=== PATIENT | female | born 2000 | race Caucasian/White ===

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

== ENCOUNTER 2019-02-14 00:53 | Emergency (ER) | payer OTHER ==
[2019-02-14 01:06] VITALS: BP 111/70; PULSE 90; RESP 16; TEMP 98.7
--- NOTE | 2019-02-14 01:11 | ED ---
Back Pain HPI - General Chief Complaint: Back Pain/Injury Stated Complaint: Back Pain (1month) Time Seen by Provider: 02/14/19 01:11 Source: patient Limitations: no limitations - History of Present Illness Initial Comments: Lexus is a pleasant her old female presents to the emergency department this morning after ending her shift at [employer]. Patient reports that over the p ast month she's had worsening pain in her lower back. Patient reports that the pain is an aching in her bilateral lower back and hips. Patient reports the pain worsens throughout her shift as she is on her feet for 6-8 hours at a time. Patient also reports that she had frequently has to lift boxes at work however she's been trained inappropriate lifting technique and does her best to maintain good posture with lifting. Patient reports that she's been experiencing this pain intermittently for approximately month but it seems to be happening more frequently. She reports that she is intermittently taken some ibuprofen with minimal response. Patient states that today her back was hurting during her shift so she decided to the ER for further evaluation. Patient denies any weakness in the lower extremities any gait instability she denies any numbness or tingling in the legs or in the saddle region, she denies any bowel or bladder continence she denies any constipation or urinary retention she denies any fevers chills nausea vomiting she denies any IV drug use. Patient has no known trauma to the back she has no history of surgeries or interventions of the back. - Related Data Previous Rx's Medication Instructions Recorded Ibuprofen [Motrin] 800 mg PO TID #30 tab 02/14/19 Lidocaine 5% Patch [Lidoderm] 1 patch TOPICAL DAILY #30 patch 02/14/19 Allergies Allergy/AdvReac Type Severity Reaction Status Date / Time No Known Allergies Allergy Verified 02/14/19 01:06 Review of Systems ROS Statement: Those systems with pertinent positive or pertinent negative responses have been documented in the HPI. ROS Other: All systems not noted in ROS Statement are negative. Past Medical History Past Medical History: No Reported History History of Any Multi-Drug Resistant Organisms: None Reported Past Surgical History: Orthopedic Surgery Additional Past Surgical History / Comment(s): LEFT ARM Past Psychological History: No Psychological Hx Reported Smoking Status: Never smoker Past Alcohol Use History: None Reported Past Drug Use History: None Reported General Exam - General Exam Comments Initial Comments: Physical Exam GENERAL: Pleasant morbidly obese female in no acute distress HENT: Normocephalic, Atraumatic. EYES: PERRL, EOMI PULMONARY: Unlabored respirations. No audible rales rhonchi or wheezing was noted. CARDIOVASCULAR: There is a regular rate and rhythm without any murmurs gallops or rubs. ABDOMEN: Soft and nontender with normal bowel sounds. SKIN: Skin is clear with no lesions or rashes and otherwise unremarkable. : Deferred NEUROLOGIC: Patient is alert and oriented x3. Moving all extremities spontaneously MUSCULOSKELETAL: Normal extremities with adequate strength and full range of motion. No lower extremity swelling or edema. No calf tenderness. No tenderness to percussion of the midline spine PSYCHIATRIC: Normal psychiatric evaluation. Limitations: no limitations Limitations: no limitations Course Vital Signs 02/14/19 01:02 Temperature 98.7 F Pulse Rate 90 Respiratory 16 Rate Blood Pressure 111/70 O2 Sat by Pulse 100 Oximetry Medical Decision Making - Medical Decision Making The patient was seen and evaluated history is obtained from the patient This is a pleasant morbidly obese 18-year-old female with low back pain which worsens with standing throughout her 6-8 hour shifts at work. Patient with no red flag symptoms at this time I don't feel there is any indication for lab work or imaging next line patient has tried to take ibuprofen intermittently over the past month but has not been on any consistent regimen Patient does admit that she was very cheap croc shoes to work, we did discuss the importance of good supportive footwear for her low back in addition we discussed supportive care including physical therapy, coarse strengthening exercises and weight loss. She was treated with Toradol in the Lidoderm patch she'll be discharged home with Lidoderm and Motrin and referred back to her primary care physician for further discussion of management of chronic low back pain. Disposition Clinical Impression: Mechanical back pain Disposition: HOME SELF-CARE Condition: Stable Instructions (If sedation given, give patient instructions): Acute Low Back Pain (ED), Chronic Back Pain (ED) Additional Instructions: HOME CARE INSTRUCTIONS: For many people, back pain returns. Since low back pain is rarely dangerous, it is often a condition that people can learn to manage on their own. Please remain active. It is stressful on the back to sit or setter automatic spinning lathe one place. Do not sit, drive, or setter automatic spinning lathe one place for more than 30 minutes at a time. Take short walks on level surfaces as soon as pain allows. Try to increase the length of time you walk each day. Do not stay in bed. Resting more than 1 or 2 days can delay your recovery. Do not avoid exercise or work. Your body is made to move. It is not dangerous to be active, even though your back may hurt. Your back will likely heal faster if you return to being active before your pain is gone. Only take oiul-cjy-dzixeab or prescription medicines as directed by your caregiver. Wkic-jwj-vczcshc medicines to reduce pain and inflammation are often the most helpful. Your caregiver may prescribe muscle relaxant drugs. These medicines help dull your pain so you can more quickly return to your normal activities and healthy exercise. Please avoid driving, operating heavy machinery or making important decisions while on this drug - it can cloud your judgment. Avoid feeling anxious or stressed. Stress increases muscle tension and can worsen back pain. It is important to recognize when you are anxious or stressed and learn ways to manage it. Exercise is a great option. SEEK MEDICAL CARE IF: You have pain that is not relieved with rest or medicine. You have pain that does not improve in 1 week. You have new symptoms. You are generally not feeling well. SEEK IMMEDIATE MEDICAL CARE IF: You have pain that radiates from your back into your legs. You develop new bowel or bladder control problems. You have unusual weakness or numbness in your arms or legs. You develop nausea or vomiting. You develop abdominal pain. You feel faint. Prescriptions: Lidocaine 5% Patch [Lidoderm] 1 patch TOPICAL DAILY #30 patch Ibuprofen [Motrin] 800 mg PO TID #30 tab Is patient prescribed a controlled substance at d/c from ED?: No Referrals: Joya Motley III, MD [Primary Care Provider] - 1-2 days
[2019-02-14] MEDS ORDERED: KETOROLAC 30 MG/ML 1 ML VIAL IM STA (01:26)
[2019-02-14] MEDS ORDERED: LIDOCAINE 5% PATCH TOPICAL SCH (09:00)
== END 2019-02-14 01:57 | disposition home or self-care (01) ==
LOC: EC 00:53
DX: M54.5 Low back pain (principal); E66.01 Morbid (severe) obesity due to excess calories; Z68.51 Body mass index [BMI] pediatric, less than 5th percentile for age
CPT/HCPCS: 99283; 96372; J1885

== ENCOUNTER 2019-04-09 11:33 | Emergency (ER) | payer OTHER ==
[2019-04-09 11:57] VITALS: BP 121/84; PULSE 86; RESP 18; TEMP 98.5
[2019-04-09] MEDS ORDERED: AMOXIC-POT CLAV 875MG STARTER 2 EACH TABLET PO STA (12:28)
[2019-04-09] MEDS ORDERED: ACET/COD 300 MG/30 MG STARTER PACK 6 TAB BTL PO STA (12:28)
--- NOTE | 2019-04-09 12:30 | ED ---
ENT HPI - General Chief complaint: Dental/Oral Stated complaint: post dental surgery swelling Time Seen by Provider: 04/09/19 11:59 Source: patient, RN notes reviewed, old records reviewed Mode of arrival: ambulatory Limitations: no limitations - History of Present Illness Initial comments: Pt is a 18 year old femael with Right lower dental pain and swelling. Patient had wisdom teeth removed 1 month ago, and is concerned for abscess. She reports swelling and pain for 2 days. She denies fever, trisums, cough, difficulty swallowing. - Related Data Previous Rx's Medication Instructions Recorded Amoxic-Pot Clav 875-125Mg 1 tab PO Q12HR #20 tablet 04/09/19 [Augmentin 875-125] Allergies Allergy/AdvReac Type Severity Reaction Status Date / Time No Known Allergies Allergy Verified 02/14/19 01:06 Review of Systems ROS Statement: Those systems with pertinent positive or pertinent negative responses have been documented in the HPI. ROS Other: All systems not noted in ROS Statement are negative. Past Medical History Past Medical History: No Reported History History of Any Multi-Drug Resistant Organisms: None Reported Past Surgical History: Orthopedic Surgery Additional Past Surgical History / Comment(s): LEFT ARM Past Psychological History: No Psychological Hx Reported Smoking Status: Never smoker Past Alcohol Use History: None Reported Past Drug Use History: None Reported General Exam Limitations: no limitations General appearance: alert, in no apparent distress Head exam: Present: atraumatic, normocephalic, normal inspection Eye exam: Present: normal appearance, PERRL, EOMI, other (swelling over right lower molar and wisdom tooth area. No palpable abscess ready for drainage. ). Absent: scleral icterus, conjunctival injection, periorbital swelling ENT exam: Present: normal exam, mucous membranes moist Neck exam: Present: normal inspection. Absent: tenderness, meningismus, lymphadenopathy Respiratory exam: Present: normal lung sounds bilaterally. Absent: respiratory distress, wheezes, rales, rhonchi, stridor Cardiovascular Exam: Present: regular rate, normal rhythm, normal heart sounds. Absent: systolic murmur, diastolic murmur, rubs, gallop, clicks GI/Abdominal exam: Present: soft, normal bowel sounds. Absent: distended, tenderness, guarding, rebound, rigid Back exam: Present: normal inspection Neurological exam: Present: alert, oriented X3, CN II-XII intact Psychiatric exam: Present: normal affect, normal mood Skin exam: Present: warm, dry, intact, normal color. Absent: rash Course Vital Signs 04/09/19 11:54 Temperature 98.5 F Pulse Rate 86 Respiratory 18 Rate Blood Pressure 121/84 O2 Sat by Pulse 99 Oximetry Medical Decision Making - Medical Decision Making 18 year old female with dental pain and jaw swelling 1 month post wisdom tooth extraction. She has appt with surgeon on Saturday. Discussed placing patient on ABX and given tylenol 3 starter pack. All questions answered, return parameters discussed. Disposition Clinical Impression: Dental abscess Disposition: HOME SELF-CARE Condition: Poor Instructions (If sedation given, give patient instructions): Dental Abscess (ED) Additional Instructions: Follow-up with her dental clinic. Take Motrin or regular Tylenol for pain. Patient should use saltwater and Listerine rinses. Return to the emergency department if any alarming signs or symptoms occur. Prescriptions: Amoxic-Pot Clav 875-125Mg [Augmentin 875-125] 1 tab PO Q12HR #20 tablet Is patient prescribed a controlled substance at d/c from ED?: No Referrals: Joya Motley III, MD [Primary Care Provider] - 1-2 days Time of Disposition: 12:29
== END 2019-04-09 12:42 | disposition home or self-care (01) ==
LOC: EC 11:33
DX: K04.7 Periapical abscess without sinus (principal)
CPT/HCPCS: 99283

== ENCOUNTER 2019-06-23 19:56 | Emergency (ER) | payer BC, OTHER ==
[2019-06-23 20:04] VITALS: BP 125/75; PULSE 84; RESP 18; TEMP 97.9
--- NOTE | 2019-06-23 20:32 | ED ---
Burn/Smoke HPI - General Chief complaint: Burn/Smoke Inhalation Stated complaint: Burned fingers, [facility] Time Seen by Provider: 06/23/19 20:05 Source: patient Mode of arrival: ambulatory Limitations: no limitations - History of Present Illness Initial comments: Patient is a 18-year-old female presenting with a burn on her right first 2 fingers. Patient states she was at work and was pouring grease into the fryer when some splashed onto her right hand. Patient states she is having some mild pain and just wants to make sure everything is okay. Patient has no pertinent past medical history. Patient denies any fever, chills, pain anywhere else. Patient has no other complaints at this time. Upon arrival to ER, vital signs are stable. - Related Data Previous Rx's Medication Instructions Recorded Amoxic-Pot Clav 875-125Mg 1 tab PO Q12HR #20 tablet 04/09/19 [Augmentin 875-125] SILVER sulfADIAZINE Cream 1 applic TOPICAL BID 5 Days #1 tube 06/23/19 [Silvadene 1% Cream] Allergies Allergy/AdvReac Type Severity Reaction Status Date / Time Influenza Virus Vaccines AdvReac Rash/Hives Verified 06/23/19 20:04 Review of Systems ROS Statement: Those systems with pertinent positive or pertinent negative responses have been documented in the HPI. ROS Other: All systems not noted in ROS Statement are negative. Past Medical History Past Medical History: No Reported History History of Any Multi-Drug Resistant Organisms: None Reported Past Surgical History: Orthopedic Surgery Additional Past Surgical History / Comment(s): LEFT ARM Past Psychological History: No Psychological Hx Reported Smoking Status: Never smoker Past Alcohol Use History: None Reported Past Drug Use History: None Reported General Exam - General Exam Comments Initial Comments: GENERAL: Well-appearing, well-nourished and in no acute distress. HEAD: Atraumatic, normocephalic. EYES: Pupils equal round and reactive to light, extraocular movements intact, sclera anicteric, conjunctiva are normal. ENT: TMs normal, nares patent, oropharynx clear without exudates. Moist mucous membranes. NECK: Normal range of motion, supple without lymphadenopathy or JVD. LUNGS: Breath sounds clear to auscultation bilaterally and equal. No wheezes rales or rhonchi. HEART: Regular rate and rhythm without murmurs, rubs or gallops. ABDOMEN: Soft, nontender, normoactive bowel sounds. No guarding, no rebound. No masses appreciated. : Deferred EXTREMITIES: Normal range of motion, no pitting or edema. No clubbing or cyanosis. NEUROLOGICAL: Cranial nerves II through XII grossly intact. Normal speech, normal gait. PSYCH: Normal mood, normal affect. SKIN: Warm, Dry, normal turgor, no rashes. There is a first-degree superficial burn on the distal aspect of the right second and third digits, dorsal aspect. There is no blisters and very mild erythema. Limitations: no limitations Course Vital Signs 06/23/19 19:57 Temperature 97.9 F Pulse Rate 84 Respiratory 18 Rate Blood Pressure 125/75 O2 Sat by Pulse 100 Oximetry Medical Decision Making - Medical Decision Making Patient is a 18-year-old female presenting with first degree superficial jolly of the right second and third digits, dorsal aspect. Patient had grease from a fryer at work splashed onto her. There is no blister formation and mild erythema. Patient's pain is minimal. Patient will be discharged home with Silvadene cream. Patient will apply twice a day. Patient is stable for discharge. Patient is in agreement with this plan of care. Return parameters were discussed with the patient she verbalized understanding. Disposition Clinical Impression: First degree burn multiple fingers right hand not including thumb Disposition: HOME SELF-CARE Condition: Stable Instructions (If sedation given, give patient instructions): Superficial Burn (ED) Additional Instructions: Please return to the Emergency Department if symptoms worsen or any other concerns. Apply cream twice a day. Prescriptions: SILVER sulfADIAZINE Cream [Silvadene 1% Cream] 1 applic TOPICAL BID 5 Days #1 tube Is patient prescribed a controlled substance at d/c from ED?: No Referrals: Joya Motley III, MD [Primary Care Provider] - 1-2 days
== END 2019-06-23 20:39 | disposition home or self-care (01) ==
LOC: EC 19:56
DX: T23.131A Burn of first degree of multiple right fingers (nail), not including thumb, initial encounter (principal); Z88.7 Allergy status to serum and vaccine; Y26.XXXA Exposure to smoke, fire and flames, undetermined intent, initial encounter; Y93.89 Activity, other specified; Y92.69 Other specified industrial and construction area as the place of occurrence of the external cause; Y99.0 Civilian activity done for income or pay
CPT/HCPCS: 99283

== ENCOUNTER 2019-09-02 21:15 | Emergency (ER) | payer BC, OTHER ==
[2019-09-02 21:29] VITALS: BP 124/79; PULSE 93; RESP 16; TEMP 98.5
--- NOTE | 2019-09-02 22:10 | ED ---
Back Pain HPI - General Chief Complaint: Back Pain/Injury Stated Complaint: lower back pain Time Seen by Provider: 09/02/19 21:33 Source: patient Limitations: no limitations - History of Present Illness Initial Comments: Patient is a 19-year-old female presenting to the emergency department with a chief complaint of back pain. Patient reports that she woke up this morning she had the sudden onset of sharp pain in the right sacral region that lasted several minutes. Patient denies any radiation of the pain. Patient reports a total she had 4 episodes of the pain that only lasted a few minutes. Patient reports the pain is exacerbated with walking and whenever it occurs she has to stop moving her to alleviate it. Patient denies any urinary or bowel symptoms. Patient denies saddle anesthesia, urinary bowel incontinence. Patient denies nausea vomiting or diarrhea. Patient is sexually active and states there is a possibility for . Patient is not concerned for STDs. Patient has an abdominal pain nausea vomiting. - Related Data Previous Rx's Medication Instructions Recorded Amoxic-Pot Clav 875-125Mg 1 tab PO Q12HR #20 tablet 04/09/19 [Augmentin 875-125] SILVER sulfADIAZINE Cream 1 applic TOPICAL BID 5 Days #1 tube 06/23/19 [Silvadene 1% Cream] Ciz-Lfol-Wmqds Acid 1 each PO DAILY #30 cap 09/02/19 [-U Capsule] Allergies Allergy/AdvReac Type Severity Reaction Status Date / Time Influenza Virus Vaccines AdvReac Rash/Hives Verified 09/02/19 21:28 Review of Systems ROS Statement: Those systems with pertinent positive or pertinent negative responses have been documented in the HPI. ROS Other: All systems not noted in ROS Statement are negative. Past Medical History Past Medical History: No Reported History History of Any Multi-Drug Resistant Organisms: None Reported Past Surgical History: Orthopedic Surgery Additional Past Surgical History / Comment(s): LEFT ARM Past Psychological History: No Psychological Hx Reported Smoking Status: Never smoker Past Alcohol Use History: None Reported Past Drug Use History: None Reported General Exam Limitations: no limitations General appearance: alert, in no apparent distress, obese Head exam: Present: atraumatic, normocephalic, normal inspection Eye exam: Present: normal appearance Pupils: Present: normal accommodation ENT exam: Present: normal exam, normal oropharynx, mucous membranes moist, TM's normal bilaterally, normal external ear exam Neck exam: Present: normal inspection, full ROM Respiratory exam: Present: normal lung sounds bilaterally Cardiovascular Exam: Present: regular rate, normal rhythm, normal heart sounds GI/Abdominal exam: Present: soft. Absent: distended, tenderness, guarding, rebound Extremities exam: Present: normal inspection, full ROM Back exam: Present: normal inspection, full ROM, tenderness (Mild tenderness in the right sacral region. Pain exacerbated with forward flexion and rotation.). Absent: CVA tenderness (R), CVA tenderness (L) Neurological exam: Present: alert, oriented X3 Psychiatric exam: Present: normal affect, normal mood Skin exam: Present: warm, dry, intact, normal color Course Vital Signs 09/02/19 21:26 Temperature 98.5 F Pulse Rate 93 Respiratory 16 Rate Blood Pressure 124/79 O2 Sat by Pulse 100 Oximetry Medical Decision Making - Medical Decision Making Patient is a 19-year-old female presenting to emergency Department with a chief complaint of back pain. Physical examination is remarkable for some pain in the sacrum that appears to be exacerbated with forward flexion and rotation. Patient is sexually active. UA is not showing a UTI but does show positive . Patient advised to follow with primary care. Patient prescribed vitamins. Strict return parameters were thoroughly discussed with patient was understanding and agreement. All questions answered. Case discussed with physician. - Lab Data Lab Results 09/02/19 09/02/19 Range/Units 22:11 22:11 Urine Color Yellow Urine Appearance Cloudy H (Clear) Urine pH 6.0 (5.0-8.0) Ur Specific [place] 1.031 (1.001-1.035) Urine Protein Trace H (Negative) Urine Glucose (UA) Negative (Negative) Urine Ketones Negative (Negative) Urine Blood Negative (Negative) Urine Nitrite Negative (Negative) Urine Bilirubin Negative (Negative) Urine Urobilinogen <2.0 (<2.0) mg/dL Ur Leukocyte Esterase Negative (Negative) Urine RBC 1 (0-5) /hpf Urine WBC 2 (0-5) /hpf Ur Squamous Epith Cells 5 H (0-4) /hpf Urine Mucus Many H (None) /hpf Urine HCG, Qual Detected (Not Detectd) Disposition Clinical Impression: Disposition: HOME SELF-CARE Condition: Stable Instructions (If sedation given, give patient instructions): Acute Low Back Pain (ED) Prescriptions: Hwp-Vrjz-Cjiqf Acid [-U Capsule] 1 each PO DAILY #30 cap Is patient prescribed a controlled substance at d/c from ED?: No Referrals: Joya Motley III, MD [Primary Care Provider] - 1-2 days Time of Disposition: 22:39
[2019-09-02 22:34] LABS: Appearance,Urine Cloudy (Clear); Bilirubin,Urine Negative (Negative); Blood,Urine Negative (Negative); Color,Urine Yellow; Glucose,Urine (UA) Negative (Negative); Ketones,Urine Negative (Negative); Leukocyte Esterase,Urine Negative (Negative); Mucus,Urine Many /hpf; Nitrite,Urine Negative (Negative); Protein,Urine Trace (Negative); RBC,Urine 1 /hpf (0-5); Specific Gravity,Urine 1.031 (1.001-1.035); Squamous Epithelial Cell,Urine 5 /hpf (0-4); Urobilinogen,Urine <2.0 mg/dL (<2.0)
== END 2019-09-02 22:52 | disposition home or self-care (01) ==
LOC: EC 21:15
DX: O21.9 Vomiting of pregnancy, unspecified (principal); O99.89 Other specified diseases and conditions complicating pregnancy, childbirth and the puerperium; R10.9 Unspecified abdominal pain; M54.5 Low back pain; Z32.01 Encounter for pregnancy test, result positive; Z88.7 Allergy status to serum and vaccine; Z3A.00 Weeks of gestation of pregnancy not specified
CPT/HCPCS: 81001; 81025; 99283

== ENCOUNTER 2019-10-03 15:02 | Emergency (ER) | payer BC, OTHER ==
[2019-10-03] MEDS ORDERED: ACETAMINOPHEN TAB 325 MG TAB PO STA (15:32)
[2019-10-03] MEDS ORDERED: SODIUM CHLORIDE 0.9% 1,000 ML IV STA (15:32)
[2019-10-03 16:01] LABS: Basophils % (A) 0 %; Eosinophils # (A) 0.1 k/uL (0-0.7); Eosinophils % (A) 1 %; HCT 38.8 % (34.0-46.0); HGB 13.1 gm/dL (11.4-16.0); Lymphocytes # (A) 1.5 k/uL (1.0-4.8); Lymphocytes % (A) 19 %; MCH 29.2 pg (25.0-35.0); MCHC 33.9 g/dL (31.0-37.0); MCV 86.1 fL (80.0-100.0); Mean Platelet Volume 8.1; Monocytes # (A) 0.3 k/uL (0-1.0); Monocytes % (A) 4 %; Neutrophils # (A) 6.2 k/uL (1.3-7.7); Neutrophils % (A) 75 %; Platelet Count 244 k/uL (150-450); RBC 4.51 m/uL (3.80-5.40); RDW 13.6 % (11.5-15.5); WBC 8.2 k/uL (4.0-11.0)
[2019-10-03 16:04] LABS: Appearance,Urine Cloudy (Clear); Bilirubin,Urine Negative (Negative); Blood,Urine Negative (Negative); Color,Urine Yellow; Glucose,Urine (UA) Negative (Negative); Ketones,Urine Negative (Negative); Leukocyte Esterase,Urine Negative (Negative); Mucus,Urine Few /hpf; Nitrite,Urine Negative (Negative); Protein,Urine Negative (Negative); RBC,Urine 1 /hpf (0-5); Specific Gravity,Urine 1.019 (1.001-1.035); Squamous Epithelial Cell,Urine 2 /hpf (0-4); Urobilinogen,Urine <2.0 mg/dL (<2.0); WBC,Urine <1 /hpf (0-5)
--- NOTE | 2019-10-03 16:08 | ED ---
Abdominal Pain HPI - General Chief Complaint: Abdominal Pain Stated Complaint: Left side abdominal pain Time Seen by Provider: 10/03/19 15:14 Source: patient Mode of arrival: ambulatory Limitations: no limitations - History of Present Illness Initial Comments: Patient is a 19-year-old female presenting to the emergency department with abdominal pain that started approximately 2 hours prior to arrival. Patient is currently 9 weeks . . SHADE CLASSIFIER is Dr. Dumont. Patient describes the pain as sharp and intermittent at times. Patient does admit to mild nausea but she's had throughout this . Patient denies recent fever, chills, di arrhea, chest pain, shortness of breath. Patient has no history of abdominal surgeries. Patient states she did not take any Tylenol today. Patient has no other complaints at this time. Upon arrival to ER, her vital signs are stable. - Related Data Previous Rx's Medication Instructions Recorded Amoxic-Pot Clav 875-125Mg 1 tab PO Q12HR #20 tablet 04/09/19 [Augmentin 875-125] SILVER sulfADIAZINE Cream 1 applic TOPICAL BID 5 Days #1 tube 06/23/19 [Silvadene 1% Cream] Sal-Lzhx-Lpucv Acid 1 each PO DAILY #30 cap 09/02/19 [-U Capsule] Allergies Allergy/AdvReac Type Severity Reaction Status Date / Time Influenza Virus Vaccines AdvReac Rash/Hives Verified 10/03/19 15:12 Review of Systems ROS Statement: Those systems with pertinent positive or pertinent negative responses have been documented in the HPI. ROS Other: All systems not noted in ROS Statement are negative. Past Medical History Past Medical History: No Reported History History of Any Multi-Drug Resistant Organisms: None Reported Past Surgical History: Orthopedic Surgery Additional Past Surgical History / Comment(s): LEFT ARM Past Psychological History: No Psychological Hx Reported Smoking Status: Never smoker Past Alcohol Use History: None Reported Past Drug Use History: None Reported General Exam - General Exam Comments Initial Comments: GENERAL: Well-appearing, well-nourished and in no acute distress. HEAD: Atraumatic, normocephalic. EYES: Pupils equal round and reactive to light, extraocular movements intact, sclera anicteric, conjunctiva are normal. ENT: TMs normal, nares patent, oropharynx clear without exudates. Moist mucous membranes. NECK: Normal range of motion, supple without lymphadenopathy or JVD. LUNGS: Breath sounds clear to auscultation bilaterally and equal. No wheezes rales or rhonchi. HEART: Regular rate and rhythm without murmurs, rubs or gallops. ABDOMEN: Tender to palpation left lower quadrant. Soft, normoactive bowel sounds. No guarding, no rebound. No masses appreciated. EXTREMITIES: Normal range of motion, no pitting or edema. No clubbing or cyanosis. SKIN: Warm, Dry, normal turgor, no rashes or lesions noted. Limitations: no limitations External exam: Present: normal external exam Speculum exam: Present: normal speculum exam, other (Cervical os closed). Absent: cervical discharge, vaginal bleeding Course Vital Signs 10/03/19 10/03/19 15:09 17:44 Temperature 98.7 F 98 F Pulse Rate 90 85 Respiratory 20 18 Rate Blood Pressure 134/82 112/77 O2 Sat by Pulse 100 100 Oximetry Medical Decision Making - Medical Decision Making Patient is a 19-year-old female presenting with left lower quadrant abdominal pain that started today. Patient's currently 9 weeks . has been uncomplicated thus far. Vital signs are normal. Lab work is unremarkable, hCG Judson is over 100,000. Ultrasound shows a single viable IUP with heart rate of 185. There is a corpus luteal cyst, mostly left-sided. She was given Tylenol reports improvement in her symptoms. I discussed the findings with the patient. Patient will follow-up with her SHADE CLASSIFIER in a few weeks. Strict return parameters were discussed with the patient she verbalized understanding. Patient is stable for discharge at this time. - Lab Data Result diagrams: 10/03/19 15:46 10/03/19 15:46 Lab Results 10/03/19 10/03/19 10/03/19 Range/Units 15:46 15:46 15:46 WBC 8.2 (4.0-11.0) k/uL RBC 4.51 (3.80-5.40) m/uL Hgb 13.1 (11.4-16.0) gm/dL Hct 38.8 (34.0-46.0) % MCV 86.1 (80.0-100.0) fL MCH 29.2 (25.0-35.0) pg MCHC 33.9 (31.0-37.0) g/dL RDW 13.6 (11.5-15.5) % Plt Count 244 (150-450) k/uL Neutrophils % 75 % Lymphocytes % 19 % Monocytes % 4 % Eosinophils % 1 % Basophils % 0 % Neutrophils # 6.2 (1.3-7.7) k/uL Lymphocytes # 1.5 (1.0-4.8) k/uL Monocytes # 0.3 (0-1.0) k/uL Eosinophils # 0.1 (0-0.7) k/uL Basophils # 0.0 (0-0.2) k/uL Sodium 137 (137-145) mmol/L Potassium 4.0 (3.5-5.1) mmol/L Chloride 106 (98-107) mmol/L Carbon Dioxide 23 (22-30) mmol/L Anion Gap 8 mmol/L BUN 6 L (7-17) mg/dL Creatinine 0.59 (0.52-1.04) mg/dL Est GFR (CKD-EPI)AfAm >90 (>60 ml/min/1.73 sqM) Est GFR (CKD-EPI)NonAf >90 (>60 ml/min/1.73 sqM) Glucose 82 (74-99) mg/dL Calcium 9.4 (8.4-10.2) mg/dL Total Bilirubin 0.3 (0.2-1.3) mg/dL AST 21 (14-36) U/L ALT 14 (4-34) U/L Alkaline Phosphatase 61 (38-126) U/L Total Protein 7.3 (6.3-8.2) g/dL Albumin 4.2 (3.5-5.0) g/dL Amylase 58 (30-110) U/L Lipase 55 (23-300) U/L HCG, Quant 559208.0 mIU/mL Urine Color Urine Appearance (Clear) Urine pH (5.0-8.0) Ur Specific [place] (1.001-1.035) Urine Protein (Negative) Urine Glucose (UA) (Negative) Urine Ketones (Negative) Urine Blood (Negative) Urine Nitrite (Negative) Urine Bilirubin (Negative) Urine Urobilinogen (<2.0) mg/dL Ur Leukocyte Esterase (Negative) Urine RBC (0-5) /hpf Urine WBC (0-5) /hpf Ur Squamous Epith Cells (0-4) /hpf Urine Mucus (None) /hpf Blood Type A Positive Blood Type Recheck No Previous Record Bld Type Recheck Status No 10/03/19 Range/Units 15:46 WBC (4.0-11.0) k/uL RBC (3.80-5.40) m/uL Hgb (11.4-16.0) gm/dL Hct (34.0-46.0) % MCV (80.0-100.0) fL MCH (25.0-35.0) pg MCHC (31.0-37.0) g/dL RDW (11.5-15.5) % Plt Count (150-450) k/uL Neutrophils % % Lymphocytes % % Monocytes % % Eosinophils % % Basophils % % Neutrophils # (1.3-7.7) k/uL Lymphocytes # (1.0-4.8) k/uL Monocytes # (0-1.0) k/uL Eosinophils # (0-0.7) k/uL Basophils # (0-0.2) k/uL Sodium (137-145) mmol/L Potassium (3.5-5.1) mmol/L Chloride (98-107) mmol/L Carbon Dioxide (22-30) mmol/L Anion Gap mmol/L BUN (7-17) mg/dL Creatinine (0.52-1.04) mg/dL Est GFR (CKD-EPI)AfAm (>60 ml/min/1.73 sqM) Est GFR (CKD-EPI)NonAf (>60 ml/min/1.73 sqM) Glucose (74-99) mg/dL Calcium (8.4-10.2) mg/dL Total Bilirubin (0.2-1.3) mg/dL AST (14-36) U/L ALT (4-34) U/L Alkaline Phosphatase (38-126) U/L Total Protein (6.3-8.2) g/dL Albumin (3.5-5.0) g/dL Amylase (30-110) U/L Lipase (23-300) U/L HCG, Quant mIU/mL Urine Color Yellow Urine Appearance Cloudy H (Clear) Urine pH 7.0 (5.0-8.0) Ur Specific [place] 1.019 (1.001-1.035) Urine Protein Negative (Negative) Urine Glucose (UA) Negative (Negative) Urine Ketones Negative (Negative) Urine Blood Negative (Negative) Urine Nitrite Negative (Negative) Urine Bilirubin Negative (Negative) Urine Urobilinogen <2.0 (<2.0) mg/dL Ur Leukocyte Esterase Negative (Negative) Urine RBC 1 (0-5) /hpf Urine WBC <1 (0-5) /hpf Ur Squamous Epith Cells 2 (0-4) /hpf Urine Mucus Few H (None) /hpf Blood Type Blood Type Recheck Bld Type Recheck Status Disposition Clinical Impression: Abdominal pain, and not yet delivered in first trimester Disposition: HOME SELF-CARE Condition: Stable Instructions (If sedation given, give patient instructions): Abdominal Pain (ED) Additional Instructions: Please return to the Emergency Department if symptoms worsen or any other concerns. Follow-up with SHADE CLASSIFIER as discussed. Continue with vitamins as well as Tylenol as needed for pain. Is patient prescribed a controlled substance at d/c from ED?: No Referrals: Joya Motley III, MD [Primary Care Provider] - 1-2 days
[2019-10-03 16:17] LABS: ALT 14 U/L (4-34); AST 21 U/L (14-36); African American GFR (CKD) >90 (>60 ml/min/1.73 sqM); Albumin 4.2 g/dL (3.5-5.0); Alkaline Phosphatase 61 U/L (38-126); Amylase 58 U/L (30-110); Anion Gap 8 mmol/L; Blood Urea Nitrogen 6 mg/dL (7-17); Calcium 9.4 mg/dL (8.4-10.2); Carbon Dioxide 23 mmol/L (22-30); Chloride 106 mmol/L (98-107); Glucose 82 mg/dL (74-99); Non-African American GFR(CKD) >90 (>60 ml/min/1.73 sqM); Sodium 137 mmol/L (137-145); Total Bilirubin 0.3 mg/dL (0.2-1.3); Total Protein 7.3 g/dL (6.3-8.2)
--- NOTE | 2019-10-03 16:57 | US ---
EXAMINATION TYPE: Transabdominal DATE OF EXAM: 10/03/2019 4:19 PM COMPARISON: NONE CLINICAL HISTORY: pain. LLQ pain today, early OB EXAM PERFORMED: OBTA EXAM MEASUREMENTS: GESTATIONAL AGE / DATING Physician Established: Not yet established Dates by LMP: (9 weeks/4 days) EDC: 05/03/2020 Dates by First Scan: No previous this is first scan Dates by Current Scan for: (8 weeks/5 days) EDC: 05/09/2020 MATERNAL ANATOMY Uterus: 11.2 x 6.6 x 5.4cm Right Ovary: 2.4 x 2.1 x 2.2cm, 1.4cm cyst seen Left Ovary: 3.1 x 2.8 x 2.3cm Post CDS / Adnexa: wnl Presence of free fluid: no Presence of corpus luteal cyst: yes, probable left = 2.7cm Presence of subchorionic bleed: no GESTATION / SURVEY CRL: 2.0cm (8 weeks/5 days) MSD: wnl Yolk Sac (normal less than 6mm): 0.3cm Heart Rate: 185 bpm Rhythm: Normal IUP: Viable IUP Date of LMP: 07/28/2019 Beta HcG (if available): pending IMPRESSION: Single viable intrauterine corresponding to ultrasound age 8 weeks 5 days with estimated da te of delivery 05/09/2020
[2019-10-03 17:46] VITALS: BP 112/77; PULSE 85; RESP 18; TEMP 98
== END 2019-10-03 17:46 | disposition home or self-care (01) ==
LOC: EC 15:02
DX: O99.89 Other specified diseases and conditions complicating pregnancy, childbirth and the puerperium (principal); R10.32 Left lower quadrant pain; O34.81 Maternal care for other abnormalities of pelvic organs, first trimester; N83.12 Corpus luteum cyst of left ovary; R11.0 Nausea; Z88.7 Allergy status to serum and vaccine; Z3A.09 9 weeks gestation of pregnancy
CPT/HCPCS: 36415; 76801; 80053; 81001; 82150; 83690; 84702; 85025; 86900; 86901; 96360; 96361; 99284

== ENCOUNTER 2020-03-11 15:39 | Outpatient (CLI) | payer BC, OTHER ==
[2020-03-11 16:47] VITALS: BP 126/74; PULSE 88; RESP 14; TEMP 97.4
--- NOTE | 2020-03-30 12:56 | P.MSEPDOC ---
Presenting Problems - Arrival Data Date of Arrival on Unit: 03/11/20 Time of Arrival on Unit: 15:39 Mode of Transport: Ambulatory - Complaint OB-Reason for Admission/Chief Complaint: Pain Medical History - Information : 1 Para: 0 Term: 0 : 0 Abortions: Spontaneous or Elective: 0 Number of Living Children: 0 - Gestational Age Gestational Age by PAULA (wks/days): 32 Weeks and 3 Days Review of Systems - Review of Systems Constitutional: No problems Breast: No problems ENT: No problems Cardiovascular: No problems Respiratory: No problems Gastrointestinal: No problems Genitourinary: No problems Musculoskeletal: No problems Neurological: No problems Skin: No problems Vital Signs - Temperature Temperature: 97.4 F Temperature Source: Tympanic - Pulse Right Brachial Pulse Rate: 88 Pulse Assessment Method: Auscultation - Respirations Respiratory Rate: 14 Oxygen Delivery Method: Room Air - Blood Pressure Right Arm Blood Pressure: 126/74 Blood Pressure Mean: 91 Blood Pressure Source: Automatic Cuff Medical Screen Scoring (Pre) - Cervical Exam Dilation: Exam Deferred Effacement: Exam Deferred Membranes: Intact - Uterine Contractions Frequency: N/A Duration: N/A Intensity: N/A - Maternal Vital Signs Maternal Temperature: N/A Maternal Blood Pressure: N/A Signs of Preeclampsia: N/A Maternal Respirations: N/A - Maternal Trauma Maternal Trauma: N/A - Assessment - Baby A Baseline FHR: 130 Heart Rate - NICHD Category: Category I (Normal) = 0 NST: Reactive Position: N/A Station: N/A - Total Score - Baby A Total Score - Baby A: 0 - Total Score - Baby B Total Score - Baby B: 0 - Total Score - Baby C Total Score - Baby C: 0 - Level of Risk - Baby A Level of Risk - Baby A: Low (0-5) - Level of Risk - Baby B Level of Risk - Baby B: Low (0-5) - Level of Risk - Baby C Level of Risk - Baby C: Low (0-5) Physician Notification (Pre) - Physician Notified Physician Notified Date: 03/11/20 Physician Notified Time: 16:46 New Order Received: Yes - Notification Comment Comment: D/C HOME Disposition - Disposition OB Disposition: Discharge to home Discharge Date: 03/11/20 Discharge Time: 16:47 I agree with the RN Medical Screening Exam: Yes Risk & Benefit of care provided described in d/c instruction: Yes Diagnosis: FALSE LABOR BEFORE 37 COMPLETED WEEKS OF GEST, THIRD TRI
== END 2020-03-11 16:50 | disposition home or self-care (01) ==
LOC: FBPOP 15:39
PROVIDERS: ATTEND Obstetrics & Gynecology Obstetrics
DX: O47.03 False labor before 37 completed weeks of gestation, third trimester (principal); Z3A.32 32 weeks gestation of pregnancy
CPT/HCPCS: 59025; 99213

== ENCOUNTER 2020-04-01 13:36 | Outpatient (CLI) | payer BC, OTHER ==
[2020-04-01 14:58] VITALS: BP 122/73; PULSE 88; RESP 16; TEMP 97.6
--- NOTE | 2020-04-02 11:21 | P.MSEPDOC ---
Presenting Problems - Arrival Data Date of Arrival on Unit: 04/01/20 Time of Arrival on Unit: 13:35 Mode of Transport: Wheelchair - Complaint OB-Reason for Admission/Chief Complaint: Pain Medical History - Information : 1 Para: 0 Term: 0 : 0 Abortions: Spontaneous or Elective: 0 Number of Living Children: 0 - Gestational Age Gestational Age by PAULA (wks/days): 35 Weeks and 3 Days Review of Systems - Review of Systems Constitutional: No problems Breast: No problems ENT: No problems Cardiovascular: No problems Respiratory: No problems Gastrointestinal: No problems Genitourinary: No problems Musculoskeletal: No problems Neurological: No problems Skin: No problems Vital Signs - Temperature Temperature: 97.6 F Temperature Source: Temporal Artery Scan - Pulse Pulse Oximetery Pulse Rate: 88 Pulse Assessment Method: Automatic Cuff - Respirations Respiratory Rate: 16 O2 Sat by Pulse Oximetry: 99 - Blood Pressure Right Arm Sitting Blood Pressure: 122/73 Blood Pressure Mean: 89 Blood Pressure Source: Automatic Cuff Medical Screen Scoring (Pre) - Cervical Exam Dilation: Exam Deferred Effacement: Exam Deferred Membranes: Intact - Uterine Contractions Frequency: N/A Duration: N/A Intensity: N/A - Maternal Vital Signs Maternal Temperature: N/A Maternal Blood Pressure: N/A Signs of Preeclampsia: N/A Maternal Respirations: N/A - Maternal Trauma Maternal Trauma: N/A - Assessment - Baby A Baseline FHR: 135 Heart Rate - NICHD Category: Category I (Normal) = 0 NST: Reactive Position: N/A Station: N/A - Total Score - Baby A Total Score - Baby A: 0 - Total Score - Baby B Total Score - Baby B: 0 - Total Score - Baby C Total Score - Baby C: 0 - Level of Risk - Baby A Level of Risk - Baby A: Low (0-5) - Level of Risk - Baby B Level of Risk - Baby B: Low (0-5) - Level of Risk - Baby C Level of Risk - Baby C: Low (0-5) Physician Notification (Pre) - Physician Notified Physician Notified Date: 04/01/20 Physician Notified Time: 14:01 New Order Received: Yes Disposition - Disposition OB Disposition: Discharge to home, Written follow up instructions reviewed Discharge Date: 04/01/20 Discharge Time: 14:05 I agree with the RN Medical Screening Exam: Yes Risk & Benefit of care provided described in d/c instruction: Yes Diagnosis: RELATED CONDITIONS, UNSPECIFIED, THIRD TRIMESTER
== END 2020-04-01 14:05 | disposition home or self-care (01) ==
LOC: FBPOP 13:36
PROVIDERS: ATTEND Obstetrics & Gynecology
DX: O26.93 Pregnancy related conditions, unspecified, third trimester (principal); Z3A.35 35 weeks gestation of pregnancy
CPT/HCPCS: 59025; 99213

== ENCOUNTER 2020-05-02 06:00 | Inpatient (IN) | payer BC, OTHER ==
[2020-05-02] MEDS ORDERED: OXYTOCIN 10 UNIT/ML 1 ML VIAL IM PRN (06:21)
[2020-05-02] MEDS ORDERED: LIDOCAINE 0.5% (PF) 5 MG/ML (50 ML SDV) SQ PRN (06:21)
[2020-05-02] MEDS ORDERED: TERBUTALINE 1 MG/ML VIAL SQ PRN (06:21)
[2020-05-02] MEDS ORDERED: CARBOPROST TROMETHAMINE 250 MCG/ML 1 ML AMP IM PRN (06:21)
[2020-05-02] MEDS ORDERED: METHYLERGONOVINE 0.2 MG/ML 1 ML AMP IM PRN (06:21)
[2020-05-02] MEDS ORDERED: OXYTOCIN 30 UNITS/500 ML NS 30 UNIT in SALINE 1 500ML.BAG IV SCH (06:30)
[2020-05-02 06:39] LABS: Basophils % (A) 0 %; Eosinophils # (A) 0.1 k/uL (0-0.7); Eosinophils % (A) 2 %; HCT 33.9 % (34.0-46.0); HGB 10.8 gm/dL (11.4-16.0); Hypochromasia Slight; Lymphocytes # (A) 1.6 k/uL (1.0-4.8); Lymphocytes % (A) 20 %; MCH 26.6 pg (25.0-35.0); MCHC 31.9 g/dL (31.0-37.0); MCV 83.5 fL (80.0-100.0); Monocytes # (A) 0.3 k/uL (0-1.0); Monocytes % (A) 3 %; Neutrophils # (A) 5.8 k/uL (1.3-7.7); Neutrophils % (A) 73 %; Platelet Count 236 k/uL (150-450); Poikilocytosis Slight; RBC 4.06 m/uL (3.80-5.40); WBC 7.9 k/uL (4.0-11.0)
[2020-05-02] MEDS: LACTATED RINGERS 1,000 ML IV SCH ×3 (06:40→17:45)
--- NOTE | 2020-05-02 08:33 | P.HPOB ---
History of Present Illness H&P Date: 05/02/20 Chief Complaint: IUP at This is a 19-year-old 1 para 0 at 39 6/7 weeks, edc 05/03. Patient presents to labor and delivery for elective induction of labor. Patient has been receiving routine care with myself which has been essentially uncomplicated, patient is being followed for a slightly small head circumference/biparietal diameter. Growth has been good, on last ultrasound 04/06 ( 35 weeks) weight 5 lbs. 14 oz. 31st percentile. Amniotic fluid was normal at that time. Patient has noted good movement, denies vaginal bleeding or loss of fluid. She denies contractions. On bloodwork this patient has a blood type of A+, rubella status immune, RPR nonreactive, B surface antigen is negative, HIV negative, she did pass her one-hour Glucola. Group beta strep culture was negative on 04/06. Review of Systems Constitutional: Denies fatigue, Denies fever Ears, nose, mouth and throat: Denies headache Cardiovascular: Reports leg edema Respiratory: Denies dyspnea Gastrointestinal: Denies constipation, Denies diarrhea, Denies nausea, Denies vomiting Genitourinary: Reports Past Medical History Past Medical History: No Reported History History of Any Multi-Drug Resistant Organisms: None Reported Past Surgical History: Adenoidectomy, Orthopedic Surgery, Tonsillectomy Additional Past Surgical History / Comment(s): LEFT ARM Past Anesthesia/Blood Transfusion Reactions: No Reported Reaction Past Psychological History: No Psychological Hx Reported Smoking Status: Never smoker Past Alcohol Use History: None Reported Past Drug Use History: None Reported - Past Family History Mother Family Medical History: Asthma Father Additional Family Medical History / Comment(s): crohns Medications and Allergies Home Medications Medication Instructions Recorded Confirmed Type Pnj-Kkkp-Kxlrm Acid 1 each PO DAILY #30 cap 09/02/19 05/02/20 Rx [-U Capsule] Ferrous Sulfate [Iron] 325 mg PO DAILY 04/01/20 05/02/20 History Acetaminophen [Tylenol] 650 mg PO TID 05/02/20 05/02/20 History Allergies Allergy/AdvReac Type Severity Reaction Status Date / Time Influenza Virus Vaccines AdvReac Rash/Hives Verified 05/02/20 06:18 Exam Osteopathic Statement: *. No significant issues noted on an osteopathic structural exam other than those noted in the History and Physical/Consult. 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 These will be covered with Tegaderm, with antibiotic ointment. heart tones are noted to be category 1, she is gisella irregularly, on cervical exam she is 2/70/-2, amniotomy is performed and clear fluid is obtained. Results Result Diagrams: 05/02/20 06:30 Abnormal Lab Results - Last 24 Hours (Table) 05/02/20 Range/Units 06:30 Hgb 10.8 L (11.4-16.0) gm/dL Hct 33.9 L (34.0-46.0) % Assessment and Plan (1) Term Current Visit: Yes Status: Acute Code(s): Z34.90 - ENCNTR FOR SUPRVSN OF NORMAL , UNSP, UNSP TRIMESTER SNOMED Code(s): 88026845 Plan: Patient is admitted to labor and delivery for induction of labor. Pitocin induction of labor is begun with IV Pitocin per hospital protocol. Options for analgesia during labor are discussed including epidural, Stadol. Patient states understanding and will consider both. Anticipate spontaneous vaginal delivery later this afternoon.
[2020-05-02] MEDS: BUTORPHANOL 1 MG/ML 1 ML VIAL IV PRN ×2 (10:37→13:32)
[2020-05-02] MEDS ORDERED: SODIUM CHLORIDE 0.9% 100 ML BAG ONE ×2 (17:18→19:40)
[2020-05-02] MEDS ORDERED: fentaNYL (PF) 50 MCG/ML 5 ML AMP ONE (17:18)
[2020-05-02] MEDS ORDERED: ROPIVACAINE 5MG/ML 20ML VIAL ONE (17:18)
[2020-05-02] MEDS ORDERED: CITRIC ACID-SODIUM CITRATE 15 ML CUP PO ONE (19:22)
[2020-05-02] MEDS ORDERED: ceFAZolin 1,000 MG VIAL ONE (19:40)
[2020-05-02] MEDS ORDERED: MORPHINE SULFATE (PF) 0.3 MG/0.3 ML SYR ONE (19:40)
[2020-05-02] MEDS ORDERED: ONDANSETRON 4 MG/2 ML VIAL ONE (19:40)
[2020-05-02] MEDS ORDERED: NALBUPHINE 10 MG/ML (1 ML AMP) ONE (19:40)
[2020-05-02] MEDS ORDERED: ePHEDrine SULFATE/0.9% NACL/PF 50 MG/5 ML SYRINGE IV ONE (19:40)
[2020-05-02] MEDS ORDERED: OXYTOCIN 10 UNIT/ML 1 ML VIAL ONE (19:40)
[2020-05-02] MEDS ORDERED: diphenhydrAMINE 50 MG/ML 1 ML VIAL IVP PRN ×3 (20:13→20:46)
[2020-05-02] MEDS ORDERED: KETOROLAC 30 MG/ML 1 ML VIAL IVP PRN (20:13)
[2020-05-02] MEDS ORDERED: NALOXONE 0.4 MG/ML 1 ML VIAL IV PRN ×2 (20:13→20:46)
[2020-05-02] MEDS ORDERED: ONDANSETRON 4 MG/2 ML VIAL IVP PRN ×2 (20:13→20:46)
[2020-05-02] MEDS ORDERED: HYDROmorphone 0.5 MG/0.5 ML SYRINGE IVP PRN (20:13)
[2020-05-02] MEDS ORDERED: IBUPROFEN IV 800 MG in SODIUM CHLORIDE 0.9% 250 ML IV ONE (20:32)
--- NOTE | 2020-05-02 20:32 | P.OP ---
Date of Procedure: 05/02/20 Preoperative Diagnosis: IUP at 39-6/7 weeks, arrest of descent and dilation Postoperative Diagnosis: Same plus occiput posterior presentation Procedure(s) Performed: Primary low transverse section Anesthesia: spinal Surgeon: Urszula Hampton Radar Technician #1: Rodolfo Hale Estimated Blood Loss (ml): 400 IV fluids (ml): 900 Urine output (ml): 100 Pathology: none sent Condition: stable Disposition: observation Indications for Procedure: This pleasant 19-year-old 1 para 0 was admitted to labor and delivery this morning with a cervix of 2/70/-3 presentation. Patient was started on IV Pitocin for induction of labor. Patient progressed very slowly through labor eventually at 1900 and was noted to be 3 cm/70/-3 presentation, occiput posterior presentation was suspected. Patient was given option of primary C- section given minimal descent throughout the entire day and she elected to proceed. Operative Findings: Normal uterus tubes and ovaries were appreciated. Viable female delivered at 1959, weight of 6 lbs. 5 oz. with Apgars of 9-9 at one and 5 minutes respectively. Description of Procedure: Patient was taken back to the operating suite where epidural anesthesia was found be in adequate therefore spinal anesthesia was performed by the anesthesia department. Patient was then prepped and draped in the dorsal supine position. Case catheter had been placed just after spinal was complete. A Pfannenstiel skin incision was made the scalpel and carried through to the underlying layer of fascia. Fascia was then incised in the midline the incision was then extended laterally. The superior aspect of the fascial incision and grasped with Autumn clamps, elevated and underlying rectus muscle was dissected off sharply. Attention was then turned the inferior aspect of the fascial incision which was grasped autumn clamps, elevated and underlying rectus muscles dissected off sharply. The rectus muscles were in the midline the peritoneum was identified and entered. The bladder blade was then inserted and the Rosalino. The vesicouterine peritoneum was identified and the bladder flap was then created using sharp and blunt dissection. Hysterotomy incision was made with the scalpel the infant's head was delivered in an occiput posterior presentation the umbilical cord was doubly clamped and cut and handed off to waiting RN. The placenta was then removed manually and somewhat adherent to the fundal portion of the uterus. The uterus was then cleared of all clots and debris. The uterine incision was then closed with 0 Vicryl in a running locked fashion 2. Bleeding was noted on the right-hand side of the uterine incision therefore 2 [id number] sutures were used to obtain hemostasis. The uterus was then returned to the abdomen. The gutters were cleared of all clots and debris. Hemostasis was appreciated on the hysterotomy incision. The peritoneum was then loosely reapproximated. The fascia was then closed with 0 Vicryl in a running fashion from one lateral edge the other. The subcu tissue was then irrigated and found to be hemostatic. The subcu tissue was closed with 3-0 Vicryl in a running fashion. The skin was then closed with 4-0 Vicryl in a subarticular fashion. Steri-Strips and sterile dressings were applied. All counts were noted be correct 2 at the end the procedure. Patient and infant tolerated delivery well and are resting comfortably.
[2020-05-02] MEDS ORDERED: ZOLPIDEM 5 MG TAB PO PRN (20:46)
[2020-05-02] MEDS ORDERED: SIMETHICONE 80 MG CHEWABLE PO PRN (20:46)
[2020-05-02] MEDS ORDERED: diphenhydrAMINE 50 MG CAP PO PRN (20:46)
[2020-05-02] MEDS ORDERED: diphenhydrAMINE 25 MG CAP PO PRN (20:46)
[2020-05-02] MEDS ORDERED: OXYTOCIN 20 UNITS/1000 ML NS 1,000 ML IV SCH (20:46)
[2020-05-02] MEDS ORDERED: ACETAMINOPHEN TAB 325 MG TAB PO PRN (20:46)
[2020-05-02] MEDS ORDERED: METOCLOPRAMIDE 5 MG/ML 2 ML VIAL IVP PRN (20:46)
[2020-05-02] MEDS: SENNOSIDES-DOCUSATE SODIUM 1 EACH TAB PO SCH (21:35)
[2020-05-02] MEDS ORDERED: ACETAMINOPHEN IV (For NPO) 1,000 MG in EMPTY BAG 1 BAG IVPB ONE (22:00)
--- NOTE | 2020-05-03 07:28 | P.PCN ---
Date of Procedure: 05/03/20 Procedure(s) Performed: Postoperative day 1 status post section under spinal anesthesia, and intrathecal morphine given for postoperative analgesia, patient doing well, there is no anesthesia related complications, Patient had no headache, vital signs stable , Assessment and plan= postop day 1 status post , doing well there is no anesthesia related complication.
[2020-05-03] MEDS: SENNOSIDES-DOCUSATE SODIUM 1 EACH TAB PO SCH ×2 (07:35→19:46)
--- NOTE | 2020-05-03 08:25 | P.PNOBGPC ---
Subjective - Subjective Principal diagnosis: POD 1 LTCS Interval history: Patient did well overnight. She is ambulating without difficulty. Case was just discontinued and we are awaiting spontaneous void. Her pain is well- controlled with oral pain medication. Patient reports: Reports appetite normal, Reports pain well controlled, Reports ambulating normally : doing well Objective - Vital Signs Latest vital signs: Vital Signs Temp Pulse Resp BP Pulse Ox 05/03/20 07:29 97.7 F 70 16 102/67 05/03/20 07:00 16 05/03/20 05:00 16 100 05/03/20 04:00 98.0 F 68 16 118/68 05/03/20 02:50 16 05/03/20 01:13 98 05/03/20 01:00 16 05/03/20 00:00 98.8 F 75 16 124/74 05/02/20 23:20 16 05/02/20 22:30 96.8 F L 75 16 114/57 05/02/20 22:00 70 16 117/59 05/02/20 21:30 96.4 F L 63 16 119/65 96 05/02/20 21:15 66 16 114/56 95 05/02/20 21:13 16 98 05/02/20 21:00 83 16 113/56 95 05/02/20 20:45 125 H 16 145/73 96 05/02/20 20:30 96.7 F L 90 16 117/56 98 05/02/20 20:13 16 Intake and Output 05/02/20 05/03/20 05/03/20 22:59 06:59 14:59 Output Total 500 650 Balance -500 -650 Output: Urine 500 650 Uretheral (Case) 350 Other: Voiding Method Indwelling Catheter - Exam Extremities: Present: normal Abdomen: Present: normal appearance Incision: Present: normal, dry, intact Uterus: Present: normal, firm - Labs Labs: Microbiology - Last 24 Hours (Table) 05/02/20 08:33 Gram Stain - Preliminary Abdomen Wound Culture - Preliminary Assessment and Plan (1) Term Current Visit: Yes Status: Acute Code(s): Z34.90 - ENCNTR FOR SUPRVSN OF NORMAL , UNSP, UNSP TRIMESTER SNOMED Code(s): 68477839 (2) malpresentation Current Visit: Yes Status: Acute Code(s): O32.9XX0 - MATERNAL CARE FOR MALPRESENTATION OF FETUS, UNSP, UNSP SNOMED Code(s): 16703919 (3) Arrest of dilation, delivered, current hospitalization Current Visit: Yes Status: Acute Code(s): O62.1 - SECONDARY UTERINE INERTIA SNOMED Code(s): 42809226 (4) Arrest of descent, delivered, current hospitalization Current Visit: Yes Status: Acute Code(s): O62.1 - SECONDARY UTERINE INERTIA SNOMED Code(s): 66224781 (5) S/P section Current Visit: Yes Status: Acute Code(s): Z98.891 - HISTORY OF UTERINE SCAR FROM PREVIOUS SURGERY SNOMED Code(s): 643091406 Plan: Patient is doing well overall. Continue routine postoperative care, anticipate discharge home tomorrow.
[2020-05-03] MEDS ORDERED: PRENATAL VIT-IRON-FOLIC ACID 1 EACH CAP PO SCH (09:00)
[2020-05-03] MEDS: FERROUS SULFATE 325 MG TAB PO SCH (09:25)
[2020-05-03] MEDS: CLINDAMYCIN 150 MG CAP PO SCH ×2 (10:42→19:06)
[2020-05-03] MEDS: IBUPROFEN 600 MG TAB PO PRN ×2 (10:49→19:46)
[2020-05-03] MEDS: HYDROcodone/APAP 5-325MG 1 EACH TAB PO PRN ×3 (11:46→23:30)
[2020-05-03 20:54] VITALS: RESP 16
[2020-05-03] MEDS: LACTATED RINGERS 1,000 ML IV SCH ×2 (20:55→20:56)
[2020-05-04] MEDS: IBUPROFEN 600 MG TAB PO PRN ×2 (02:15→11:31)
[2020-05-04] MEDS: CLINDAMYCIN 150 MG CAP PO SCH ×2 (02:16→10:26)
[2020-05-04 07:15] VITALS: BP 127/75; PULSE 70; TEMP 97.7
[2020-05-04] MEDS: HYDROcodone/APAP 5-325MG 1 EACH TAB PO PRN (07:18)
[2020-05-04] MEDS: SENNOSIDES-DOCUSATE SODIUM 1 EACH TAB PO SCH (07:19)
--- NOTE | 2020-05-04 08:33 | P.DS ---
Providers Date of admission: 05/02/20 06:00 Expected date of discharge: 05/04/20 Attending physician: Urszula Hampton Primary care physician: Stated None - Discharge Diagnosis(es) (1) Term Current Visit: Yes Status: Acute (2) malpresentation Current Visit: Yes Status: Acute (3) Arrest of dilation, delivered, current hospitalization Current Visit: Yes Status: Acute (4) Arrest of descent, delivered, current hospitalization Current Visit: Yes Status: Acute (5) S/P section Current Visit: Yes Status: Acute (6) MRSA cellulitis Current Visit: Yes Status: Acute Hospital Course: This is a pleasant 1 now para 1 presented to labor and delivery at 39- 6/7 weeks for induction of labor. Patient monitored closely through the for lagging head circumference, BPD. Overall growth and testing had been reassuring. Patient was noted to be 2 cm in the office and elected induction of labor. Patient was admitted to labor and delivery Pitocin induction of labor was begun. Once regular contractions were noted amniotomy was performed and clear fluid was obtained. Patient progressed very slowly eventually making 1 cm of change after multiple hours, approximately 7. Patient was counseled on primary versus continuing on, and she elected primary . At that time occiput posterior presentation was suspected. Patient was taken back to the operating suite where primary was performed occiput posterior presentation was confirmed. was completed without difficulty for further details on the please see the operative report. Patient's postoperative course has been uneventful. On this postop day #2 she is ambulating and voiding without difficulty she is tolerating a regular diet without nausea or vomiting she is bottle feeding. She states her lochia is minimal. Her pain is well-controlled. Of note on admission patient did note to new-onset boils which were cultured and positive for MRSA. Patient was begun on oral clindamycin. Patient Condition at Discharge: Good Plan - Discharge Summary New Discharge Prescriptions: No Action [id number] Acid [-U Capsule] 1 each PO DAILY #30 cap Ferrous Sulfate [Iron] 325 mg PO DAILY Acetaminophen [Tylenol] 650 mg PO TID Discharge Medication List [id number] Acid [-U Capsule] 1 each PO DAILY #30 cap 09/02/19 [Rx] Ferrous Sulfate [Iron] 325 mg PO DAILY 04/01/20 [History] Acetaminophen [Tylenol] 650 mg PO TID 05/02/20 [History] Follow up Appointment(s)/Referral(s): Urszula Hampton DO [Doctor of Osteopathic Medicine] - 2 Weeks Patient Instructions/Handouts: (DC), (GEN) Discharge Disposition: HOME SELF-CARE
[2020-05-04] MEDS: FERROUS SULFATE 325 MG TAB PO SCH (10:26)
== END 2020-05-04 14:30 | disposition home or self-care (01) | DRG 787 ==
LOC: 4FBP 06:00
PROVIDERS: ADMIT Obstetrics & Gynecology Obstetrics; ATTEND Obstetrics & Gynecology Obstetrics
PROC: 3E0R3BZ Introduction of Anesthetic Agent into Spinal Canal, Percutaneous Approach (ICD-10-PCS; principal; 2020-05-02 19:30)
PROC: 10D00Z1 Extraction of Products of Conception, Low, Open Approach (ICD-10-PCS; principal; 2020-05-02 19:30)
PROC: 3E033VJ Introduction of Other Hormone into Peripheral Vein, Percutaneous Approach (ICD-10-PCS; principal; 2020-05-02 19:30)
DX: O32.9XX0 Maternal care for malpresentation of fetus, unspecified, not applicable or unspecified (principal); L03.311 Cellulitis of abdominal wall; O98.82 Other maternal infectious and parasitic diseases complicating childbirth; O62.1 Secondary uterine inertia; B95.62 Methicillin resistant Staphylococcus aureus infection as the cause of diseases classified elsewhere; O99.72 Diseases of the skin and subcutaneous tissue complicating childbirth; Z37.0 Single live birth; Z3A.39 39 weeks gestation of pregnancy; Z79.899 Other long term (current) drug therapy; Z82.5 Family history of asthma and other chronic lower respiratory diseases; Z82.49 Family history of ischemic heart disease and other diseases of the circulatory system; Z80.9 Family history of malignant neoplasm, unspecified
CPT/HCPCS: 85025; 86850; 86900; 86901; 87070; 87077; 87186; 87205

== ENCOUNTER 2020-07-22 14:12 | Emergency (ER) | payer BC, OTHER ==
[2020-07-22 14:19] VITALS: RESP 18
[2020-07-22] MEDS ORDERED: ACETAMINOPHEN TAB 500 MG TAB PO STA (14:46)
--- NOTE | 2020-07-22 14:52 | ED ---
Fever HPI - General Chief Complaint: Fever Stated Complaint: Congestion, Sore Throat Time Seen by Provider: 07/22/20 14:26 Source: patient Mode of arrival: ambulatory Limitations: no limitations - History of Present Illness Initial Comments: Patient is a 20-year-old female presenting to emergency Department with complaints of a sore throat, runny nose for the last 2 days. Patient states her symptoms started with a sore throat but that has since improved, she is mostly complaining of nasal congestion and drainage. She does have a very mild dry cough but is very sporadic. She denies any chest pain or shortness of breath, abdominal pain, nausea, vomiting, diarrhea. She denies any ear pain or headaches. She denies any fevers but states that today she has been feeling warmer than usual. She took DayQuil this morning. She is 2 months out from a , she has been healing well from a . She has no further complaints at this time. Upon arrival to the ER, patient's temperature is 100.2, pulse is 108, respiratory rate 18, 132/88, 99% on room air. - Related Data Home Medications Medication Instructions Recorded Confirmed Ashlyna 1 tab PO DAILY 07/22/20 07/22/20 Allergies Allergy/AdvReac Type Severity Reaction Status Date / Time Influenza Virus Vaccines AdvReac Rash/Hives Verified 07/22/20 15:19 Review of Systems ROS Statement: Those systems with pertinent positive or pertinent negative responses have been documented in the HPI. ROS Other: All systems not noted in ROS Statement are negative. Past Medical History Past Medical History: No Reported History History of Any Multi-Drug Resistant Organisms: None Reported Past Surgical History: Adenoidectomy, Orthopedic Surgery, Tonsillectomy Additional Past Surgical History / Comment(s): LEFT ARM Past Anesthesia/Blood Transfusion Reactions: No Reported Reaction Past Psychological History: No Psychological Hx Reported Smoking Status: Never smoker Past Alcohol Use History: None Reported Past Drug Use History: None Reported - Past Family History Mother Family Medical History: Asthma Father Additional Family Medical History / Comment(s): crohns General Exam - General Exam Comments Initial Comments: GENERAL: Patient is well-developed and well-nourished. Patient is nontoxic and in no acute distress. HEAD: Atraumatic, normocephalic. EYES: Pupils equal round and reactive to light, extraocular movements intact, sclera anicteric, conjunctiva are normal. Eyelids were unremarkable. ENT: TMs normal, nares patent, oropharynx clear without exudates. Moist mucous membranes. NECK: Normal range of motion, supple without lymphadenopathy or JVD. LUNGS: Unlabored respirations. Breath sounds clear to auscultation bilaterally and equal. No wheezes rales or rhonchi. HEART: Slightly tachycardia rate and rhythm without murmurs, rubs or gallops. ABDOMEN: Soft, nontender, normoactive bowel sounds. No guarding, no rebound. No masses appreciated. : Deferred MUSCULOSKELETAL: Normal extremities with adequate strength and normal range of motion, no pitting or edema. No clubbing or cyanosis. NEUROLOGICAL: Patient is alert and oriented x 3. Motor and sensory are also intact. Cranial nerves II through XII grossly intact. Symmetrical smile. Normal speech, normal gait. PSYCH: Normal mood, normal affect. SKIN: Warm, Dry, normal turgor, no rashes or lesions noted. Limitations: no limitations Course Vital Signs 07/22/20 07/22/20 14:15 17:38 Temperature 100.2 F H 98.5 F Pulse Rate 108 H 83 Respiratory 18 18 Rate Blood Pressure 132/88 138/88 O2 Sat by Pulse 99 100 Oximetry Medical Decision Making - Medical Decision Making Patient is 20-year-old female here for fever, runny nose, sore throat for the past 2 days. She has been febrile for one day. 100.2 on arrival. Patient's exam is unremarkable. Strep is negative, influenza is negative, her Covid test is pending. Chest x-ray was no acute process. To give patient Tylenol which did improve her fever. I discussed with patient that her exam and workup today appears to be normal. I do recommend continuing to self quarantine until Covid test results. She can follow up with her PCP as symptoms persist. Continue taking Motrin and/or Tylenol for her fever. Strict return parameters were discussed with the patient she verbalized understanding. - Lab Data Lab Results 07/22/20 Range/Units 15:01 Influenza Type A RNA Not Detected (Not Detectd) Influenza Type B (PCR) Not Detected (Not Detectd) Group A Strep Rapid Negative (Negative) Disposition Clinical Impression: Sore throat (viral), Fever Disposition: HOME SELF-CARE Condition: Stable Instructions (If sedation given, give patient instructions): Fever in Adults (ED) Additional Instructions: Please return to the Emergency Department if symptoms worsen or any other concerns. Continue with Tylenol or Motrin for fever control. Covid test is pending at this time. Continue to self quarantined until results. Follow-up with PCP. Is patient prescribed a controlled substance at d/c from ED?: No Referrals: Joya Motley III, MD [Primary Care Provider] - 1-2 days
--- NOTE | 2020-07-22 15:33 | XR ---
EXAMINATION TYPE: XR chest 2V DATE OF EXAM: 07/22/2020 COMPARISON: Prior chest x-ray December 12, 2015 HISTORY: Fever and cough. TECHNIQUE: Frontal and lateral views of the chest are obtained. FINDINGS: There is no focal air space opacity, pleural effusion, or pneumothorax seen. The cardiac silhouette size is within normal limits. Underlying levoconvex scoliosis centered upper to mid thorac ic spine redemonstrated. IMPRESSION: No suspicious new acute pulmonary process.
[2020-07-22 17:39] VITALS: BP 138/88; PULSE 83; TEMP 98.5
== END 2020-07-22 17:39 | disposition home or self-care (01) ==
LOC: EC 14:12
DX: J02.8 Acute pharyngitis due to other specified organisms (principal); R00.0 Tachycardia, unspecified; Z88.7 Allergy status to serum and vaccine; Z90.89 Acquired absence of other organs; Z20.828 Contact with and (suspected) exposure to other viral communicable diseases
CPT/HCPCS: 71046; 87081; 87430; 87502; 99283

== ENCOUNTER 2020-07-23 08:20 | Emergency (ER) | payer BC, OTHER ==
[2020-07-23 08:27] VITALS: BP 120/82; PULSE 111; RESP 18; TEMP 98.5
[2020-07-23] MEDS ORDERED: ACETAMINOPHEN TAB 500 MG TAB PO STA (08:50)
[2020-07-23] MEDS ORDERED: AMOXICILLIN 500MG STARTER PACK 3 CAP BTL PO STA (08:51)
--- NOTE | 2020-07-23 08:56 | ED ---
General Adult HPI - General Chief complaint: ENT Stated complaint: Ear issues Time Seen by Provider: 07/23/20 08:30 Source: patient, RN notes reviewed Mode of arrival: ambulatory Limitations: no limitations - History of Present Illness Initial comments: Patient is a pleasant 20-year-old female presenting to the emergency Department with complaints of ear discomfort. Patient does have nasal congestion and sore throat for a day or 2. Ear discomfort started today. Bilateral. No fever. Patient does have history of chronic ear infections as a child. - Related Data Home Medications Medication Instructions Recorded Confirmed Ashlyna 1 tab PO DAILY 07/22/20 07/22/20 Previous Rx's Medication Instructions Recorded Amoxicillin 500 mg PO Q8H #30 capsule 07/23/20 Allergies Allergy/AdvReac Type Severity Reaction Status Date / Time Influenza Virus Vaccines AdvReac Rash/Hives Verified 07/23/20 08:27 Review of Systems ROS Statement: Those systems with pertinent positive or pertinent negative responses have been documented in the HPI. ROS Other: All systems not noted in ROS Statement are negative. Constitutional: Denies: fever Eyes: Denies: eye pain ENT: Reports: ear pain, throat pain Respiratory: Denies: cough, dyspnea Cardiovascular: Denies: chest pain Endocrine: Denies: fatigue Gastrointestinal: Denies: abdominal pain Genitourinary: Denies: dysuria Musculoskeletal: Denies: back pain Skin: Denies: rash Neurological: Denies: weakness Past Medical History Past Medical History: No Reported History History of Any Multi-Drug Resistant Organisms: None Reported Past Surgical History: Adenoidectomy, Orthopedic Surgery, Tonsillectomy Additional Past Surgical History / Comment(s): LEFT ARM Past Anesthesia/Blood Transfusion Reactions: No Reported Reaction Past Psychological History: No Psychological Hx Reported Smoking Status: Never smoker Past Alcohol Use History: None Reported Past Drug Use History: None Reported - Past Family History Mother Family Medical History: Asthma Father Additional Family Medical History / Comment(s): crohns General Exam Limitations: no limitations General appearance: alert, in no apparent distress Head exam: Present: normocephalic Eye exam: Present: normal appearance, PERRL ENT exam: Present: normal oropharynx, other (Right TM with fluid and mild erythema) Neck exam: Present: normal inspection Respiratory exam: Present: normal lung sounds bilaterally Cardiovascular Exam: Present: regular rate, normal rhythm GI/Abdominal exam: Present: soft. Absent: tenderness Extremities exam: Present: normal inspection Neurological exam: Present: alert Psychiatric exam: Present: normal affect, normal mood Skin exam: Present: normal color Course Vital Signs 07/23/20 08:25 Temperature 98.5 F Pulse Rate 111 H Respiratory 18 Rate Blood Pressure 120/82 O2 Sat by Pulse 99 Oximetry Disposition Clinical Impression: Otitis media Disposition: HOME SELF-CARE Condition: Stable Instructions (If sedation given, give patient instructions): Ear Infection (ED) Additional Instructions: Please follow-up with primary care physician in the next few days for recheck. Return for uncontrolled fevers, increased pain, worsening or change in symptoms or other concerns. Antibiotic prescription sent to [facility] on [address] Prescriptions: Amoxicillin 500 mg PO Q8H #30 capsule Is patient prescribed a controlled substance at d/c from ED?: No Referrals: Joya Motley III, MD [Primary Care Provider] - 1-2 days Time of Disposition: 08:55
== END 2020-07-23 09:02 | disposition home or self-care (01) ==
LOC: EC 08:20
DX: H66.93 Otitis media, unspecified, bilateral (principal); Z88.7 Allergy status to serum and vaccine; Z90.89 Acquired absence of other organs
CPT/HCPCS: 99282

== ENCOUNTER 2020-10-05 11:14 | Emergency (ER) | payer BC, OTHER ==
[2020-10-05] MEDS ORDERED: ACETAMINOPHEN TAB 500 MG TAB PO STA (11:38)
--- NOTE | 2020-10-05 11:39 | ED ---
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 Patient reports that her symptoms started last night into today. She states that she has no known exposure to COVID at home or directly at work that she is aware of. Patient states that she has no diarrhea or vomiting. She is a nonsmoker. - Related Data Home Medications Medication Instructions Recorded Confirmed Ashlyna 1 tab PO HS 07/22/20 10/05/20 Allergies Allergy/AdvReac Type Severity Reaction Status Date / Time Influenza Virus Vaccines Allergy Rash/Hives Verified 10/05/20 12:06 Review of Systems ROS Statement: Those systems with pertinent positive or pertinent negative responses have been documented in the HPI. ROS Other: All systems not noted in ROS Statement are negative. Past Medical History Past Medical History: No Reported History History of Any Multi-Drug Resistant Organisms: None Reported Past Surgical History: Adenoidectomy, Orthopedic Surgery, Tonsillectomy Additional Past Surgical History / Comment(s): LEFT ARM Past Anesthesia/Blood Transfusion Reactions: No Reported Reaction Past Psychological History: No Psychological Hx Reported Smoking Status: Never smoker Past Alcohol Use History: None Reported Past Drug Use History: None Reported - Past Family History Mother Family Medical History: Asthma Father Additional Family Medical History / Comment(s): crohns General Exam - General Exam Comments Initial Comments: 20-year-old female. Alert and oriented. Limitations: no limitations General appearance: alert, in no apparent distress Head exam: Present: atraumatic, normocephalic, normal inspection Eye exam: Present: normal appearance, PERRL, EOMI. Absent: scleral icterus, conjunctival injection, periorbital swelling ENT exam: Present: normal exam, mucous membranes moist. Absent: normal oropharynx (Rhinorrhea) Neck exam: Present: normal inspection. Absent: tenderness, meningismus, lymphadenopathy Respiratory exam: Present: normal lung sounds bilaterally. Absent: respiratory distress, wheezes, rales, rhonchi, stridor Cardiovascular Exam: Present: regular rate, normal rhythm, normal heart sounds. Absent: systolic murmur, diastolic murmur, rubs, gallop, clicks GI/Abdominal exam: Present: soft, normal bowel sounds. Absent: distended, tenderness, guarding, rebound, rigid Back exam: Present: normal inspection Neurological exam: Present: alert, oriented X3, CN II-XII intact Psychiatric exam: Present: normal affect, normal mood Skin exam: Present: warm, dry, intact, normal color. Absent: rash Course Vital Signs 10/05/20 10/05/20 11:25 12:15 Temperature 98.4 F 98.3 F Pulse Rate 93 86 Respiratory 20 18 Rate Blood Pressure 123/67 154/84 O2 Sat by Pulse 99 99 Oximetry Medical Decision Making - Medical Decision Making 20-year-old female presents with headache fever bodyaches and lack of sense of taste and smell. Patient has positive Covid testing. Chest x-ray is clear. Vital signs are stable. Discussed symptomatic treatment with decongestant medications and vitamin supplementation. Discussed return parameters. - Lab Data Lab Results 10/05/20 Range/Units 11:38 Coronavirus (PCR) Detected A (Not Detectd) - Radiology Data Radiology results: report reviewed Chest x-rays negative for acute cardio primary process. Disposition Clinical Impression: COVID-19 Disposition: HOME SELF-CARE Condition: Good Instructions (If sedation given, give patient instructions): Upper Respiratory Infection (ED), Viral Syndrome (ED) Additional Instructions: Patient is to quarantine for 14 days. Following up with primary care doctor. Any uneventful symptoms at home or return to the ER. Patient should check pulse oximeter if it is below 90%. Can return to the ER for reevaluation. Patient should rest, remain hydrated. Patient should purchase [id number] vitamin C and vitamin D dental help boost immune system as well as zinc. Mucinex and Tylenol for symptom control Is patient prescribed a controlled substance at d/c from ED?: No Referrals: Joya Motley III, MD [Primary Care Provider] - 1-2 days Time of Disposition: 12:32
--- NOTE | 2020-10-05 12:09 | XR ---
EXAMINATION TYPE: XR chest 1V DATE OF EXAM: 10/05/2020 COMPARISON: 07/22/2020 HISTORY: Cough TECHNIQUE: Single frontal view of the chest is obtained. FINDINGS: There is no focal air space opacity, pleural effusion, or pneumothorax seen. The cardiac silhouette size is within normal limits. The osseous structures are intact. Curvature of the spine. Heart size normal. No overt failure. IMPRESSION: No acute process.
[2020-10-05 12:24] VITALS: BP 154/84; PULSE 86; RESP 18; TEMP 98.3
== END 2020-10-05 12:39 | disposition home or self-care (01) ==
LOC: EC 11:14
DX: U07.1 COVID-19 (principal); Z88.7 Allergy status to serum and vaccine; Z90.89 Acquired absence of other organs
CPT/HCPCS: 71045; 87635; 99285

== ENCOUNTER 2021-02-26 14:39 | Emergency (ER) | payer BC, OTHER ==
[2021-02-26 14:45] VITALS: BP 149/97; PULSE 94; RESP 18; TEMP 98.1
--- NOTE | 2021-02-26 15:20 | ED ---
URI HPI - General Chief Complaint: Upper Respiratory Infection Stated Complaint: Sore throat,Stuffy nose Time Seen by Provider: 02/26/21 14:45 Source: patient Mode of arrival: ambulatory Limitations: no limitations - History of Present Illness Initial Comments: 20-year-old female presents to emergency Department with a chief complaint of a stuffy nose and a cough. Patient reports symptoms began about 2 days ago along with clear bilateral rhinorrhea and occasional nonproductive cough. States she typically coughs to clear her throat. Denies any otalgia reports occasional sore throat but denies any difficulty breathing or swallowing. Denies any fevers or chills. Not a smoker. No history of any respiratory conditions. Denies any chest and shortness of breath. She tested positive for Covid in September and has not had the vaccine. Patient states she is only looking to be tested in order to return to work. - Related Data Home Medications Medication Instructions Recorded Confirmed Roxannena 1 tab PO HS 07/22/20 10/05/20 Allergies Allergy/AdvReac Type Severity Reaction Status Date / Time Influenza Virus Vaccines Allergy Rash/Hives Verified 02/26/21 14:42 Review of Systems ROS Statement: Those systems with pertinent positive or pertinent negative responses have been documented in the HPI. ROS Other: All systems not noted in ROS Statement are negative. Past Medical History Past Medical History: No Reported History History of Any Multi-Drug Resistant Organisms: None Reported Past Surgical History: Adenoidectomy, Orthopedic Surgery, Tonsillectomy Additional Past Surgical History / Comment(s): LEFT ARM Past Anesthesia/Blood Transfusion Reactions: No Reported Reaction Past Psychological History: No Psychological Hx Reported Smoking Status: Never smoker Past Alcohol Use History: None Reported Past Drug Use History: None Reported - Past Family History Mother Family Medical History: Asthma Father Additional Family Medical History / Comment(s): crohns General Exam Limitations: no limitations General appearance: alert, in no apparent distress, obese Head exam: Present: atraumatic, normocephalic, normal inspection Eye exam: Present: normal appearance, PERRL, EOMI Pupils: Present: normal accommodation ENT exam: Present: normal exam, normal oropharynx, mucous membranes moist, TM's normal bilaterally, normal external ear exam Neck exam: Present: normal inspection, full ROM. Absent: tenderness, lymphadenopathy Respiratory exam: Present: normal lung sounds bilaterally. Absent: respiratory distress, wheezes, rales Cardiovascular Exam: Present: regular rate, normal rhythm, normal heart sounds. Absent: systolic murmur Extremities exam: Present: normal inspection, full ROM, normal capillary refill. Absent: tenderness, pedal edema, joint swelling Back exam: Present: normal inspection, full ROM. Absent: tenderness, CVA tenderness (R), CVA tenderness (L) Neurological exam: Present: alert, oriented X3 Psychiatric exam: Present: normal affect, normal mood Skin exam: Present: warm, dry, intact, normal color Course Vital Signs 02/26/21 14:42 Temperature 98.1 F Pulse Rate 94 Respiratory 18 Rate Blood Pressure 149/97 O2 Sat by Pulse 100 Oximetry Medical Decision Making - Medical Decision Making 20-year-old female presents to emergency Department with a chief complaint of stuffy nose and cough. On physical examination, no acute findings. Vital signs within normal limits. Patient is well-appearing. Covid test negative. Patient appears to have an upper respiratory infection. Return parameters discussed with patient was attending agreeable. Case discussed with physician. Disposition Clinical Impression: Upper respiratory tract infection Disposition: HOME SELF-CARE Condition: Stable Instructions (If sedation given, give patient instructions): Upper Respiratory Infection (ED) Additional Instructions: Please return to the Emergency Department if symptoms worsen or any other concerns. Is patient prescribed a controlled substance at d/c from ED?: No Referrals: Joya Motley III, MD [Primary Care Provider] - 1-2 days Time of Disposition: 15:20
== END 2021-02-26 15:35 | disposition home or self-care (01) ==
LOC: EC 14:39
DX: J06.9 Acute upper respiratory infection, unspecified (principal)
CPT/HCPCS: 87635; 99282

== ENCOUNTER 2024-11-02 13:37 | Emergency (ER) | payer BC, OTHER ==
[2024-11-02 13:41] VITALS: TEMP 98.3
--- NOTE | 2024-11-02 14:24 | ED ---
Nausea/Vomiting/Diarrhea HPI - General Chief complaint: Abdominal Pain Stated complaint: vomiting Time Seen by Provider: 11/02/24 14:02 Source: patient, RN notes reviewed Mode of arrival: ambulatory Limitations: no limitations - History of Present Illness Initial comments: This is a 24-year-old female who presents to the emergency department for abdominal pain, nausea, and vomiting. Patient is 9 weeks and . States that she has been having pain and cramping in the left lower pelvis. Denies any vaginal bleeding. Additionally for the last 3 days she has had persistent nausea and vomiting and is unable to keep anything down. She had nausea in her first , but not to this extent. Currently follows with Dr. Hampton, NEWS REPORTER. MD complaint: nausea, vomiting, abdominal pain - Related Data Previous Rx's Medication Instructions Recorded Doxylamine Succinate/Vit B6 1 each PO QID PRN #30 tab 11/02/24 [Doxylamine-Pyridoxine 10-10 mg] Metoclopramide [Reglan] 10 mg PO Q6H PRN #30 tab 11/02/24 Allergies Allergy/AdvReac Type Severity Reaction Status Date / Time Influenza Virus Vaccines Allergy Rash/Hives Verified 11/02/24 16:14 Review of Systems ROS Statement: Those systems with pertinent positive or pertinent negative responses have been documented in the HPI. ROS Other: All systems not noted in ROS Statement are negative. Past Medical History Past Medical History: No Reported History History of Any Multi-Drug Resistant Organisms: None Reported Past Surgical History: Adenoidectomy, Orthopedic Surgery, Tonsillectomy Additional Past Surgical History / Comment(s): LEFT ARM Past Anesthesia/Blood Transfusion Reactions: No Reported Reaction Past Psychological History: No Psychological Hx Reported Smoking Status: Never smoker Past Alcohol Use History: None Reported Past Drug Use History: None Reported - Past Family History Mother Family Medical History: Asthma Father Additional Family Medical History / Comment(s): crohns General Exam Limitations: no limitations General appearance: alert, in no apparent distress Head exam: Present: atraumatic, normocephalic, normal inspection Respiratory exam: Present: normal lung sounds bilaterally. Absent: respiratory distress, wheezes, rales, rhonchi, stridor Cardiovascular Exam: Present: regular rate, normal rhythm, normal heart sounds. Absent: systolic murmur, diastolic murmur, rubs, gallop, clicks Neurological exam: Present: alert, oriented X3, CN II-XII intact Psychiatric exam: Present: normal affect, normal mood Skin exam: Present: warm, dry, intact, normal color. Absent: rash Course Vital Signs 11/02/24 11/02/24 13:38 17:05 Temperature 98.3 F 98.3 F Pulse Rate 95 73 Respiratory 20 18 Rate Blood Pressure 148/85 109/74 O2 Sat by Pulse 99 100 Oximetry Medical Decision Making - Medical Decision Making This is a 24-year-old female who presents to the emergency department for nausea and vomiting in . Was pt. sent in by a medical professional or institution? @ -No Did you speak to anyone other than the patient for history? @ -No Did you review nursing and triage notes? @ -Yes, and I agree, it is accurate with regards to the patient's symptoms. Were old charts reviewed? @ -No Differential Diagnosis? @ -Differential Nausea and Vomiting: Gastroenteritis, cholecystitis, appendicitis, pancreatitis, migraine, benign positional vertigo, food borne illness, pyelonephritis, irritable bowel syndrome, influenza, Covid, GERD, incarcerated hernia, intestinal obstruction, this is not meant to be an all-inclusive list. EKG interpreted by me (3pts min.)? @ -Not obtained X-rays interpreted by me (1pt min.)? @ -Not obtained CT interpreted by me (1pt min.)? @ -Not obtained U/S interpreted by me (1pt. min.)? @ -Obstetrics ultrasound obtained. My interpretation identifies a single live IUP. What testing was considered but not performed? (CT, X-rays, U/S, labs)? Why? @ -None What meds were considered but not given? Why? @ -None Did you discuss the management of the patient with other professionals? @ -No Did you reconcile home meds? @ -No Was smoking cessation discussed for >3mins.? @ -No Was critical care preformed (if so, how long)? @ -No Were there social determinants of health that impacted care today? How? (Homelessness, low income, unemployed, alcoholism, drug addiction, transportation, low edu. Level, literacy, decrease access to med. care, long term, rehab)? @ -No Was there de-escalation of care discussed even if they declined? (Discuss DNR or withdrawal of care, Hospice)? @ -No What co-morbidities impacted this encounter? (DM, HTN, Smoking, COPD, CAD, Cancer, CVA, Hep., AIDS, mental health diagnosis, sleep apnea, morbid obesity)? @ - Was patient admitted / discharged? @ -Discharged. Lab work demonstrates mild hyperkalemia with a potassium of 5.4 which is hemolyzed. Lab work otherwise unremarkable. Urinalysis negative for signs of infection. Obstetrics ultrasound obtained revealing a single live intrauterine . 2 L of IV fluids and antiemetics administered. Sympt oms well-controlled in the emergency department and she was tolerating oral intake. Prescription for Diclegis and Reglan provided. Advised Tylenol as needed for pain relief and follow-up with her NEWS REPORTER. Patient discharged home in stable condition. Case discussed with ED attending Dr. Barreto. Return precautions reviewed in depth, the patient is instructed to return to the emergency department with any new, worsening, or concerning symptoms. Patient verbalized understanding. Undiagnosed new problem with uncertain prognosis? @ -None Drug Therapy requiring intensive monitoring for toxicity (Heparin, Nitro, Insulin, Cardizem)? @ -None Were any procedures done? @ -None Diagnosis/symptom? @ -Abdominal pain, nausea and vomiting in Acute, or Chronic, or Acute on Chronic? @ -Acute Uncomplicated (without systemic symptoms) or Complicated (systemic symptoms)? @ -Uncomplicated Side effects of treatment? @ -None Exacerbation, Progression, or Severe Exacerbation] @ -Not applicable Poses a threat to life or bodily function? @ -No - Lab Data Result diagrams: 11/02/24 14:21 11/02/24 14:21 Lab Results 11/02/24 11/02/24 11/02/24 Range/Units 14:21 14:21 14:21 WBC 8.4 (3.8-10.6) k/uL RBC 4.76 (3.80-5.40) m/uL Hgb 13.6 (11.4-16.0) gm/dL Hct 40.1 (34.0-46.0) % MCV 84.2 (80.0-100.0) fL MCH 28.6 (25.0-35.0) pg MCHC 33.9 (31.0-37.0) g/dL RDW 14.4 (11.5-15.5) % Plt Count 223 (150-450) k/uL MPV 8.9 Neutrophils % 71 % Lymphocytes % 23 % Monocytes % 4 % Eosinophils % 1 % Basophils % 0 % Neutrophils # 6.0 (1.3-7.7) k/uL Lymphocytes # 1.9 (1.0-4.8) k/uL Monocytes # 0.3 (0-1.0) k/uL Eosinophils # 0.1 (0-0.7) k/uL Basophils # 0.0 (0-0.2) k/uL Sodium 134 L (137-145) mmol/L Potassium 5.4 H (3.5-5.1) mmol/L Chloride 101 (98-107) mmol/L Carbon Dioxide 23 (22-30) mmol/L Anion Gap 10 mmol/L BUN 7 (7-17) mg/dL Creatinine 0.58 (0.52-1.04) mg/dL Est GFR (CKD-EPI)AfAm >90 (>60 ml/min/1.73 sqM) Est GFR (CKD-EPI)NonAf >90 (>60 ml/min/1.73 sqM) Glucose 85 (74-99) mg/dL Plasma Lactic Acid Fan 1.4 (0.7-2.0) mmol/L Calcium 9.7 (8.4-10.2) mg/dL Total Bilirubin 0.9 (0.2-1.3) mg/dL AST 41 H (14-36) U/L ALT 16 (4-34) U/L Alkaline Phosphatase 46 (38-126) U/L Total Protein 7.8 (6.3-8.2) g/dL Albumin 4.6 (3.5-5.0) g/dL HCG, Quant 442380.0 mIU/mL Urine Color Urine Appearance (Clear) Urine pH (5.0-8.0) Ur Specific [place] (1.001-1.035) Urine Protein (Negative) Urine Glucose (UA) (Negative) Urine Ketones (Negative) Urine Blood (Negative) Urine Nitrite (Negative) Urine Bilirubin (Negative) Urine Urobilinogen (<2.0) mg/dL Ur Leukocyte Esterase (Negative) Blood Type Blood Type Recheck Bld Type Recheck Status 01/20/25 01/20/25 Range/Units 14:40 15:58 WBC (3.8-10.6) k/uL RBC (3.80-5.40) m/uL Hgb (11.4-16.0) gm/dL Hct (34.0-46.0) % MCV (80.0-100.0) fL MCH (25.0-35.0) pg MCHC (31.0-37.0) g/dL RDW (11.5-15.5) % Plt Count (150-450) k/uL MPV Neutrophils % % Lymphocytes % % Monocytes % % Eosinophils % % Basophils % % Neutrophils # (1.3-7.7) k/uL Lymphocytes # (1.0-4.8) k/uL Monocytes # (0-1.0) k/uL Eosinophils # (0-0.7) k/uL Basophils # (0-0.2) k/uL Sodium (137-145) mmol/L Potassium (3.5-5.1) mmol/L Chloride (98-107) mmol/L Carbon Dioxide (22-30) mmol/L Anion Gap mmol/L BUN (7-17) mg/dL Creatinine (0.52-1.04) mg/dL Est GFR (CKD-EPI)AfAm (>60 ml/min/1.73 sqM) Est GFR (CKD-EPI)NonAf (>60 ml/min/1.73 sqM) Glucose (74-99) mg/dL Plasma Lactic Acid Fan (0.7-2.0) mmol/L Calcium (8.4-10.2) mg/dL Total Bilirubin (0.2-1.3) mg/dL AST (14-36) U/L ALT (4-34) U/L Alkaline Phosphatase (38-126) U/L Total Protein (6.3-8.2) g/dL Albumin (3.5-5.0) g/dL HCG, Quant mIU/mL Urine Color Light Yellow Urine Appearance Clear (Clear) Urine pH 6.0 (5.0-8.0) Ur Specific [place] 1.019 (1.001-1.035) Urine Protein Negative (Negative) Urine Glucose (UA) Negative (Negative) Urine Ketones Negative (Negative) Urine Blood Negative (Negative) Urine Nitrite Negative (Negative) Urine Bilirubin Negative (Negative) Urine Urobilinogen <2.0 (<2.0) mg/dL Ur Leukocyte Esterase Negative (Negative) Blood Type A Positive Blood Type Recheck A Pos Bld Type Recheck Status No - Radiology Data Radiology results: report reviewed, image reviewed Disposition Clinical Impression: Abdominal pain, Nausea and vomiting Disposition: HOME SELF-CARE Instructions (If sedation given, give patient instructions): Nausea and Vomiting in (ED), Abdominal Pain in (ED) Additional Instructions: Return to the emergency department with any new, worsening, or concerning symptoms. You can take the doxylamine pyridoxine up to 3 times daily as needed for nausea and vomiting. Start with 2 tablets at night, if symptoms persist after 2 days, increase dosage to 1 tablet every morning and 2 tablets at night. You may further increase the dose if needed to 1 tablet in the morning, 1 tablet in the mid to afternoon, and 2 tablets at night, with a maximum of 4 tablets each day. Take this on an empty stomach. If it is too expensive at the pharmacy, you can purchases [id number] vitamin B6 and Unisom for the same effect. The Reglan can be taken up to every 6 hours as needed for nausea and vomiting. Slowly advance your diet as tolerated and remain well-hydrated. Follow-up with Dr. Hampton. Prescriptions: Doxylamine Succinate/Vit B6 [Doxylamine-Pyridoxine 10-10 mg] 1 each PO QID PRN #30 tab PRN Reason: Nausea And Vomiting Metoclopramide [Reglan] 10 mg PO Q6H PRN #30 tab PRN Reason: Nausea And Vomiting Is patient prescribed a controlled substance at d/c from ED?: No Referrals: [facility] [NON-STAFF] - 1-2 days (Contact office to become established with a primary care provider. ) None,Stated [Primary Care Provider] - 1-2 days Forms: Area PCPs Time of Disposition: 16:15
[2024-11-02] MEDS: diphenhydrAMINE 50 MG/ML 1 ML VIAL IVP STA (14:33)
[2024-11-02] MEDS: SODIUM CHLORIDE 0.9% 2,000 ML IV STA (14:33)
[2024-11-02] MEDS: METOCLOPRAMIDE 5 MG/ML 2 ML VIAL IVP STA (14:36)
[2024-11-02 14:42] LABS: Basophils % (A) 0 %; Eosinophils # (A) 0.1 k/uL (0-0.7); Eosinophils % (A) 1 %; HCT 40.1 % (34.0-46.0); HGB 13.6 gm/dL (11.4-16.0); Lymphocytes # (A) 1.9 k/uL (1.0-4.8); Lymphocytes % (A) 23 %; MCH 28.6 pg (25.0-35.0); MCHC 33.9 g/dL (31.0-37.0); MCV 84.2 fL (80.0-100.0); Mean Platelet Volume 8.9; Monocytes # (A) 0.3 k/uL (0-1.0); Monocytes % (A) 4 %; Neutrophils % (A) 71 %; Platelet Count 223 k/uL (150-450); RBC 4.76 m/uL (3.80-5.40); RDW 14.4 % (11.5-15.5); WBC 8.4 k/uL (3.8-10.6)
[2024-11-02 14:46] LABS: ALT 16 U/L (4-34); African American GFR (CKD) >90 (>60 ml/min/1.73 sqM); Anion Gap 10 mmol/L; Blood Urea Nitrogen 7 mg/dL (7-17); Calcium 9.7 mg/dL (8.4-10.2); Carbon Dioxide 23 mmol/L (22-30); Chloride 101 mmol/L (98-107); Glucose 85 mg/dL (74-99); Non-African American GFR(CKD) >90 (>60 ml/min/1.73 sqM); Sodium 134 mmol/L (137-145)
[2024-11-02 14:59] LABS: Albumin 4.6 g/dL (3.5-5.0); Potassium 5.4 mmol/L (3.5-5.1); Total Protein 7.8 g/dL (6.3-8.2)
[2024-11-02 15:00] LABS: AST 41 U/L (14-36); Alkaline Phosphatase 46 U/L (38-126); Total Bilirubin 0.9 mg/dL (0.2-1.3)
--- NOTE | 2024-11-02 15:44 | US ---
EXAMINATION TYPE: Transabdominal DATE OF EXAM: 11/02/2024 3:16 PM COMPARISON: NONE CLINICAL INDICATION: Female, 24 years old with history of Pelvic pain, 9 weeks ; N/V with fur scraper mping, no bleeding, TECHNIQUE: OBTA with grayscale and color Doppler imaging including first trimester . FINDINGS: EXAM MEASUREMENTS: GESTATIONAL AGE / DATING Physician Established: (8 weeks/6 days) EDC: 06/08/2025 Dates by LMP: LMP unknown Dates by First Scan: No previous this is first scan Dates by Current Scan for: (9 weeks/0 days) EDC: 06/07/2025 MATERNAL ANATOMY Uterus: 11.6 x 6.1 x 5.5cm Right Ovary: 3.8 x 2.7 x 2.8cm Left Ovary: 2.5 x 2.0 x 1.2cm Post CDS / Adnexa: wnl Presence of free fluid: no Presence of corpus luteal cyst: right ovary = 2.6 x 2.4 x 2.2cm Presence of subchorionic bleed: no GESTATION / SURVEY CRL: 2.3 (9 weeks/0 days) Gestational Sac morphology: Abnormal Gestational Sac MSD: wnl Yolk Sac (normal less than 6mm): 0.4cm Heart Rate: 175 bpm Rhythm: Normal IUP: Viable IUP Date of LMP: unknown Beta HcG (if available): pending Single live intrauterine gestation as gestational sac, yolk sac, and pole are seen. No free flu id in the pelvis. Both ovaries are seen. Suspected 2.6 cm corpus luteal cyst in right ovary is noted. No suspicious ext raovarian adnexal masses. IMPRESSION: Single live intrauterine gestation. Mean crown-rump length 2.3 cm corresponding to 9 week 0 day old fetus. [facility], , 11/02/2024 3:42 PM
[2024-11-02 16:10] LABS: Appearance,Urine Clear (Clear); Bilirubin,Urine Negative (Negative); Blood,Urine Negative (Negative); Color,Urine Light Yellow; Glucose,Urine (UA) Negative (Negative); Ketones,Urine Negative (Negative); Leukocyte Esterase,Urine Negative (Negative); Nitrite,Urine Negative (Negative); Protein,Urine Negative (Negative); Specific Gravity,Urine 1.019 (1.001-1.035); Urobilinogen,Urine <2.0 mg/dL (<2.0)
[2024-11-02 17:06] VITALS: BP 109/74; PULSE 73; RESP 18
== END 2024-11-02 17:06 | disposition home or self-care (01) ==
LOC: EC 13:37
DX: O26.891 Other specified pregnancy related conditions, first trimester (principal); R10.9 Unspecified abdominal pain; O21.9 Vomiting of pregnancy, unspecified; Z88.7 Allergy status to serum and vaccine; Z3A.09 9 weeks gestation of pregnancy
CPT/HCPCS: 36415; 86900; 86901; 80053; 83605; 85025; 81003; 84702; 76801; 99284; 96374; 96375; 96361 ×2; J1200; J2765

== ENCOUNTER 2025-05-06 15:16 | Outpatient (CLI) | payer BC ==
[2025-05-06] MEDS ORDERED: LACTATED RINGERS 1,000 ML IV ONE (15:39)
[2025-05-06 16:41] VITALS: BP 127/79; PULSE 88; RESP 16; TEMP 97.8
--- NOTE | 2025-06-04 09:58 | P.MSEPDOC ---
Presenting Problems - Arrival Data Date of Arrival on Unit: 05/06/25 Time of Arrival on Unit: 15:16 Mode of Transport: Ambulatory - Complaint OB-Reason for Admission/Chief Complaint: Other Comment: decreased movement Medical History - Information : 2 Para: 1 Term: 1 : 0 Abortions: Spontaneous or Elective: 0 Number of Living Children: 1 - Gestational Age Gestational Age by PAULA (wks/days): 35 Weeks and 2 Days - History Complications: Prior Review of Systems - Review of Systems Constitutional: No problems Breast: No problems ENT: No problems Cardiovascular: No problems Respiratory: No problems Gastrointestinal: No problems Genitourinary: No problems Musculoskeletal: No problems Neurological: No problems Skin: No problems Vital Signs - Temperature Temperature: 97.8 F Temperature Source: Oral - Pulse Right Pulse Rate: 88 Pulse Assessment Method: Palpation - Respirations Respiratory Rate: 16 Oxygen Delivery Method: Room Air - Blood Pressure Right Arm Blood Pressure: 127/79 Blood Pressure Mean: 95 Blood Pressure Source: Automatic Cuff Medical Screen Scoring - Assessment - Baby A Baseline FHR: 130 Heart Rate - NICHD Category: Category I (Normal) NST: Reactive Physician Notification - Physician Notified Physician Notified Date: 05/06/25 Physician Notified Time: 16:40 Physician: DR CRAFT New Order Received: Yes - Notification Comment Comment: PT TO DISCHARGE HOME AFTER ONE HOUR ON THE MONITOR Maternal Triage Index - Prompt/Priority 3 Prompt Priority 3: Yes Criteria Met for Priority 3: decrease movement Disposition - Disposition OB Disposition: Discharge to home Discharge Date: 05/06/25 Discharge Time: 16:41 I agree with the RN Medical Screening Exam: Yes Case reviewed; plan agreed upon as documented in EMR&OBIX.: Yes Diagnosis: DECREASED MOVEMENTS, THIRD TRIMESTER, FETUS 1
== END 2025-05-06 16:42 | disposition home or self-care (01) ==
LOC: FBPOP 15:16
PROVIDERS: ATTEND Obstetrics & Gynecology Obstetrics
DX: O36.8131 Decreased fetal movements, third trimester, fetus 1 (principal); Z3A.35 35 weeks gestation of pregnancy; Z88.7 Allergy status to serum and vaccine
CPT/HCPCS: 59025; 96360; 99214